=== PATIENT | male | born 1960 | race Caucasian/White ===

== ENCOUNTER 2016-12-10 13:33 | Emergency (ER) | payer OTHER ==
[~2016-12-10] VITALS: Ht 182.9 cm; Wt 104.5 kg
[2016-12-10 13:40] VITALS: BP 151/91; PULSE 77; RESP 14; O2SAT 99
--- NOTE | 2016-12-10 13:44 | ED.REPORT ---
HPI-Extremity Problem Lower Date of Service Dec 10, 2016 ED Provider: History of Present Illness: started with heel pain, woke up with it. pain getting worse. 4 days ago noticed ankle swelling. redness on right leg started yesterday. 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 , No hx of RA, no increase in activity. lisinopril 10 mg, statin ? name, nexium 20 mg. primary care is morror in [place] after sitting for a time has increase in stiffness marshall in right hip, taking aleve 2 times a day Nursing Notes Chief Complaint: General Complaint Nursing Notes Reviewed: Yes Allergies: Coded Allergies: No Known Allergies (Unverified , 12/10/16) Scheduled Esomeprazole Magnesium (Nexium) 20 Mg Capsule.dr 20 MG PO DAILY Lisinopril (Lisinopril) 10 Mg Tablet 10 MG PO DAILY Miscellaneous Medications ([Statin unknown]) General Time Seen by MD: 13:44 Chief Complaint Other (ankle and leg swelling and feet pain and rash) Hx Obtained From: Patient Onset Occurred: More than a week ago... (2 weeks) Symptom Duration: Since onset Past Medical History Past Medical History Denies: Asthma, Diabetes mellitus Past Surgical History denies Smoking History Former Smoker (quit 35 years ago) Social History Alcohol Use: Denies alcohol use Drug Use: Denies drug use Other Social History: Occupation lives with , works at [employer] 12/08/2016 Ambulatory Status Independent Review of Systems Basic Review of Systems Eyes: Vision NL, No discharge : No dysuria, No frequency Psychiatric: Normal thought content Physical Exam Physical Exam Notes: patient reports he has a positive skin reading all the time, also reports daughter is positive strep Initial Vital Signs Vital Signs (First) Date Time Temp Pulse Resp B/P Pulse Ox O2 Delivery O2 Flow Rate FiO2 12/10/16 13:40 36.7 77 14 151/91 99 Room Air Initial VS: Reviewed, Vital signs normal General/Constitutional: Well-developed, Well-nourished Head / Eyes: Atraumatic, Normocephalic, PERRL ENT: Mucous membranes moist, Conjunctiva normal, No scleral icterus Neck: Supple, Non-tender, Full range of motion Respiratory: Breath sounds normal, Clear to auscultation, No respiratory distress Cardiovascular: Regular rate & rhythm, Heart sounds normal, Intact distal pulses Abdomen / GI: Soft, Non-tender, No guarding, No rebound, No distention Back: No CVA tenderness Lymphatic: No lymphadenopathy Upper Extremities: Vascular intact, Neuro intact, No swelling, No tenderness Skin: Warm, Dry, No cyanosis Neurologic: Alert, Oriented, Nonfocal Psychiatric: Mood/affect normal, Behavior normal, Normal thought content bilateral ankle swelling with scattered areas of erthyma on both lower legs. On right leg one is on his thigh. General/Constitutional: Awake, Alert, No acute distress Respiratory / Chest: Atraumatic, Breath sounds NL, Breath sounds = bilat, No respiratory distress Interpretation & Diagnostics Interpretation & Diagnostics: al-time imaging, as well as color and pulse Doppler interrogation, were performed of the deep veins of both legs from the inguinal ligament to the popliteal fossa. COMPARISON: None. FINDINGS: The deep veins are normally compressible, and free of intraluminal thrombus. Color and pulse Doppler demonstrate normal phasic intravascular flow. There is normal augmentation response to distal compression maneuver. IMPRESSION: No evidence for lower extremity deep venous thrombosis. Lab Results Interpretation Result Diagram: 12/10/16 1400 12/10/16 1400 Test 12/10/16 14:00 12/10/16 14:35 White Blood Count 8.9th/mm3 (3.8-10.1) Red Blood Count 4.71mil/mm3 (4.40-5.80) Hemoglobin 14.3g/dL (13.8-17.2) Hematocrit 43.6% (41.0-50.0) Mean Corpuscular Volume 92.6fL (81-100) Mean Corpuscular Hemoglobin 30.4pg (27.0-35.0) Mean Corpuscular Hemoglobin Concent 32.8% (32.0-37.0) Red Cell Distribution Width 12.8% (12.3-15.4) Platelet Count 197bil/L (150-400) Neutrophils (%) (Auto) 67.1% (40-74) Lymphocytes (%) (Auto) 21.9% (14-46) Monocytes (%) (Auto) 9.4% (4-12) Eosinophils (%) (Auto) 1.3% (0-5) Basophils (%) (Auto) 0.2% (0-3) Erythrocyte Sedimentation Rate 46mm/hr (0-30) Sodium Level 137mEq/L (134-144) Potassium Level 3.9mEq/L (3.5-5.2) Chloride Level 101mEq/L (97-108) Carbon Dioxide Level 22mmol/L (18-29) Blood Urea Nitrogen 22mg/dL (6-24) Creatinine 1.23mg/dL (0.76-1.27) Estimat Glomerular Filtration Rate 65mL/min (>59) Glucose Level 109mg/dL (60-99) Lactic Acid Level 1.0mmol/L (0.4-2.0) Calcium Level 8.9mg/dL (8.5-10.1) Total Bilirubin 0.5mg/dL (0.0-1.2) Aspartate Amino Transf (AST/SGOT) 17U/L (0-50) Alanine Aminotransferase (ALT/SGPT) 17U/L (0-44) Alkaline Phosphatase 98U/L (25-150) C-Reactive Protein 8.5mg/dL (0.0-0.5) Pro-B-Type Natriuretic Peptide 55.36pg/mL (0-210) Total Protein 7.0g/dL (6.4-8.4) Albumin 3.8g/dL (3.4-5.0) X-Ray Interpretation Xray Interpretation: PROCEDURE: X-RAY CHEST, TWO VIEWS ([id number]) INDICATIONS: 56-year-old male with bilateral ankle swelling for several weeks. TECHNIQUE: 2 views of the chest were acquired. COMPARISON: None. FINDINGS: Surgical changes and devices: None. Lungs and pleura: No pleural effusions or pneumothorax. Lungs are clear. Mediastinum: Mediastinal contours are normal. Heart size is normal. Bones and chest wall: No suspicious bony abnormalities. Soft tissues appear unremarkable. IMPRESSION: No acute cardiopulmonary disease. Re-Eval/Medical Decision Med Decision/Clinical Course 56 year old male presents for evualation of lower leg swelling and pain. Rash is classic for erthyma nodusom. ASO, and RA are still pending. Discussed with Dr. Suarez. Patient given copy of lab results and encouraged to follwo with primary care this week. Discharge & Departure Impression: Primary Impression: Erythema nodosum Disposition: Home Additional Instructions: The rash is classic for erythema nodosum. Your chest x-ray is negative. The ASO titer is pending but you are being treated for strep. You are also receiving a taper of prednisone. You labs are normal with the exception of glucose elevated at 109 and ESR and CRP is elevated. The ultrasound is negative for any clot. A note to work cloud engagement partner is provided. Please follow with primary care this week. As your skin test is positive ( in the past) one is not being placed today. EDSupervising Provider for APC: Rosalio Suarez MD, Sue ARNP Dec 10, 2016 13:44
[2016-12-10] MEDS ORDERED: [UNRECOGNIZED DRUG - REMARK] (13:49)
[2016-12-10] MEDS ORDERED: ESOM20CA28 PO (13:49)
[2016-12-10] MEDS ORDERED: LISI10TA PO (13:49)
[2016-12-10 14:19] LABS: BASOPHILS % (AUTO) 0.2 % (0-3); EOSINOPHILS % (AUTO) 1.3 % (0-5); MONOCYTES % (AUTO) 9.4 % (4-12); Mean Corpuscular Hemoglobin 30.4 pg (27.0-35.0); Mean Corpuscular Volume 92.6 fL (81-100); NEUTROPHILS % (AUTO) 67.1 % (40-74); Platelet Count 197 bil/L (150-400)
--- NOTE | 2016-12-10 14:33 | DRSVH ---
PROCEDURE: X-RAY CHEST, TWO VIEWS ([id number]) INDICATIONS: 56-year-old male with bilateral ankle swelling for several weeks. TECHNIQUE: 2 views of the chest were acquired. COMPARISON: None. FINDINGS: Surgical changes and devices: None. Lungs and pleura: No pleural effusions or pneumothorax. Lungs are clear. Mediastinum: Mediastinal contours are normal. Heart size is normal. Bones and chest wall: No suspicious bony abnormalities. Soft tissues appear unremarkable. IMPRESSION: No acute cardiopulmonary disease. Dictated by: Jacob Saez M.D. on 12/10/2016 at 14:31 Approved by: Jacob Saez M.D. on 12/10/2016 at 14:31
[2016-12-10 14:44] LABS: ERYTHROCYTE SEDIMENTATION RATE 46 mm/hr (0-30)
[2016-12-10 14:55] VITALS: BP 130/77; PULSE 75; RESP 14; O2SAT 100
--- NOTE | 2016-12-10 15:07 | DRSVH ---
PROCEDURE: US VENOUS LEG DUPLEX BILATERAL INDICATIONS: 56-year-old male with left ankle swelling. TECHNIQUE: Real-time imaging, as well as color and pulse Doppler interrogation, were performed of the deep veins of both legs from the inguinal ligament to the popliteal fossa. COMPARISON: None. FINDINGS: The deep veins are normally compressible, and free of intraluminal thrombus. Color and pu lse Doppler demonstrate normal phasic intravascular flow. There is normal augmentation response to d istal compression maneuver. IMPRESSION: No evidence for lower extremity deep venous thrombosis. Dictated by: Jacob Saez M.D. on 12/10/2016 at 15:03 Approved by: Jacob Saez M.D. on 12/10/2016 at 15:05
[2016-12-10] MEDS ORDERED: predniSONE 20 mg Tablet PO ONE (16:35)
[2016-12-10 16:56] VITALS: BP 130/77; PULSE 75; RESP 14; O2SAT 100
[2017-01-24] MEDS ORDERED: [UNRECOGNIZED DRUG - CODE] IM (16:16)
== END 2016-12-10 16:57 | disposition home or self-care (01) ==
LOC: SED 13:33
DX: L52 Erythema nodosum (principal); Z87.891 Personal history of nicotine dependence

== ENCOUNTER 2016-12-21 19:00 | Emergency (ER) | payer OTHER ==
[~2016-12-21] VITALS: Ht 182.9 cm; Wt 104.5 kg
[~2016-12-21 19:00] MED LIST: ESOM20CA28 PO; LISI10TA PO; [UNRECOGNIZED DRUG - REMARK]
[2016-12-21 19:10] VITALS: BP 150/91; PULSE 126; RESP 15; O2SAT 100
--- NOTE | 2016-12-21 21:45 | ED.REPORT ---
HPI-General Illness Date of Service Dec 21, 2016 ED Provider: Zhao Jay MD A 56 year old male with a history of hypertension presents to the ED complaining of bilateral ankle and foot pain. This is accompanied by swelling and redness. The pt was seen in the ED eleven days ago for similar symptoms and was diagnosed with strep. He was prescribed a ten day course of Prednisone, but began experiencing swelling and pain again before the antibiotics were completed. This was accompanied by worsening back spasms, nausea, and a small area of redness, swelling, and pain near his right knee. He is no longer able to walk due to the pain. The pt denies recent exposure to lyme disease or any known family history of gout. He also denies personal history of ulcerative colitis, pancreatitis, Crohn's disease, or alcoholism. Nursing Notes Stated Complaint: STREP IN FEET,FEVER Chief Complaint: Skin Rash/Abscess Nursing Notes Reviewed: Yes Allergies: Coded Allergies: No Known Allergies (Unverified , 12/21/16) Scheduled Esomeprazole Magnesium (Nexium) 20 Mg Capsule.dr 20 MG PO DAILY Lisinopril (Lisinopril) 10 Mg Tablet 10 MG PO DAILY Miscellaneous Medications ([Statin unknown]) General Time Seen by MD: 21:44 Chief Complaint Other (Bilateral foot pain) Hx Obtained From: Patient Arrived By: Walk-in Sudden in Onset?: No Onset Occurred: More than a week ago... Symptom Duration: Since onset Recent Healthcare: No recent hospitalization, Recent doctor visit Similar Sx Previous: No Past Medical History Past Medical History hypertension Past Surgical History none reported Smoking History Former Smoker (quit 1981) Social History Alcohol Use: Denies alcohol use Drug Use: Denies drug use Other Social History: Good social support, Occupation lives with , works at [employer] 12/08/2016 Ambulatory Status Independent Review of Systems redness of feet Full Review of Systems Constitutional: Denies: Fever Respiratory: Denies: Non-productive cough, Shortness of breath Cardiovascular: Denies: Chest pain GI: Reports: Nausea, Denies: Abdominal pain, Diarrhea, Vomiting Musculoskeletal: Reports: Back pain (spasms), Extremity pain, Extremity swelling Skin: Reports Rash Complete sys rev & neg: except as marked. Physical Exam Vital Signs Vital Signs Date Time Temp Pulse Resp B/P Pulse Ox O2 Delivery O2 Flow Rate FiO2 12/22/16 02:36 36.5 90 16 112/77 97 Room Air 12/21/16 19:10 36.6 126 15 150/91 100 Room Air Initial VS: Reviewed General/Constitutional: Awake, Alert Head / Eyes: Atraumatic, Normocephalic, PERRL, EOMI, Conjunctiva NL ENT: Atraumatic, Airway patent, Mucous membranes moist Neck: Atraumatic, Supple, Full range of motion Respiratory / Chest: Atraumatic, Breath sounds NL, Breath sounds = bilat, No respiratory distress Cardiovascular: Heart rate NL, Regular rhythm, Heart sounds NL Abdomen: Atraumatic, Soft, Non-tender Back: Atraumatic, Full range of motion Upper Extremities Upper Extremity / MS: Atraumatic, Full range of motion Lower Extremity / Pelvis / MS: Atraumatic, Full range of motion patch on right thigh medial and proximal to knee Ankle / Foot: No deformity violaceous patches, tender and swollen on anterior and medial ankles bilateral ankle edema, appears related to patches Skin: Atraumatic, Color NL, No rash, Warm, Dry skin normal other than noted above Neurologic: Oriented X3, Speech NL, No motor deficits, No sensory deficits Psychiatric: Affect NL, Mood NL Interpretation & Diagnostics Lab Results Interpretation Result Diagram: 12/21/16 2240 12/21/16 2240 Test 12/21/16 21:50 12/21/16 22:40 Urine Color Yellow (YELLOW) Urine Appearance Hazy (CLEAR,HAZY) Urine pH 6.0 (5.0-8.0) Urine Specific [place] 1.030 (1.003-1.035) Urine Protein Negativemg/dL (NEG,TRACE) Urine Glucose (UA) Negativemg/dL (NEGATIVE) Urine Ketones Negativemg/dL (NEGATIVE) Urine Occult Blood Negative (NEGATIVE) Urine Nitrite Negative (NEGATIVE) Urine Bilirubin Negative (NEGATIVE) Urine Urobilinogen Normalmg/dL (NORMAL) Urine Leukocyte Esterase Negative (NEGATIVE) Urine RBC 0-2/hpf (0-2) Urine WBC 0-5/hpf (0-5) Urine Epithelial Cells Occasional/hpf (NONE-MOD) Urine Crystals None seen (NONE SEEN) Urine Bacteria Few/hpf (NONE-FEW) Urine Hyaline Casts None/lpf (NONE) Urine Granular Casts None seen (NONE SEEN) Urine Waxy Casts None seen (NONE SEEN) Urine Red Blood Cell Casts None seen (NONE SEEN) Urine White Blood Cell Casts None seen (NONE SEEN) Urine Mucus Present (None Seen) Urine Trichomonas None seen (NONE SEEN) Urine Yeast None (NONE SEEN) Urinalysis Comment None Urine Culture Reflexed Not indicated White Blood Count 15.8th/mm3 (3.8-10.1) Red Blood Count 5.26mil/mm3 (4.40-5.80) Hemoglobin 16.3g/dL (13.8-17.2) Hematocrit 48.4% (41.0-50.0) Mean Corpuscular Volume 92.0fL (81-100) Mean Corpuscular Hemoglobin 31.0pg (27.0-35.0) Mean Corpuscular Hemoglobin Concent 33.7% (32.0-37.0) Red Cell Distribution Width 13.3% (12.3-15.4) Platelet Count 252bil/L (150-400) Neutrophils (%) (Auto) 76.0% (40-74) Lymphocytes (%) (Auto) 14.3% (14-46) Monocytes (%) (Auto) 8.5% (4-12) Eosinophils (%) (Auto) 0.6% (0-5) Basophils (%) (Auto) 0.3% (0-3) Band Neutrophils % 0% (1-5) Erythrocyte Sedimentation Rate 3mm/hr (0-30) Sodium Level 138mEq/L (134-144) Potassium Level 4.5mEq/L (3.5-5.2) Chloride Level 99mEq/L (97-108) Carbon Dioxide Level 26mmol/L (18-29) Blood Urea Nitrogen 28mg/dL (6-24) Creatinine 1.44mg/dL (0.76-1.27) Estimat Glomerular Filtration Rate 54mL/min (>59) Glucose Level 116mg/dL (60-99) Uric Acid 5.4mg/dL (2.6-7.2) Calcium Level 9.3mg/dL (8.5-10.1) Magnesium Level 2.0mg/dL (1.6-2.6) Total Bilirubin 0.6mg/dL (0.0-1.2) Aspartate Amino Transf (AST/SGOT) 15U/L (0-50) Alanine Aminotransferase (ALT/SGPT) 18U/L (0-44) Alkaline Phosphatase 108U/L (25-150) C-Reactive Protein 4.1mg/dL (0.0-0.5) Total Protein 7.7g/dL (6.4-8.4) Albumin 4.1g/dL (3.4-5.0) Lipase 50U/L (13-60) Hold Navarro Top Tube Received (Received) Procedures Procedure Notes: Skin Biopsy 01:35 ED physician informed consent provided by patient time-out performed, hand hygiene observed, stand sterile technique, sterile drapes applied location: right ankle local anesthesia: 1% lidocaine skin preparation agent: chlorhexidine 4 mm circular punch biopsy tool used to make 4 mm circular punch elevated with forceps and trimmed including subcutaneous fat promptly placed in formalin hemostasis good, approximation good closed with 2 4-O sutures dressing applied, no complications, condition improved, tolerated procedure well, patient stable Re-Eval/Medical Decision Med Decision/Clinical Course 56-year-old with arthropathy associated with a hazy red skin rash on his lower extremities. The lesions on his legs are clearly arthritic and not merely erythema nodosum. Actually has no bui involvement at all, and it is all centered on the ankles. There is effusion of the ankle joints. No other large joints appear to be affected. He is inflammatory indices are somewhat improved from the determination several days ago, but still abnormal. A skin biopsy was obtained tonight and submitted to pathology. He is directed to secure follow up with rheumatology. Call PCP to make that referral. Provided with Dr. Rene's contact information. I suspect this is inflammatory arthropathy related to an acute infection, whether viral or streptococcal is not clear. No other associated issues, with no history of inflammatory bowel disease, no symptoms to suggest that, no history of pancreatitis, no history of hepatitis, no likelihood of Lyme exposure, and worsening symptoms despite a completion of a course of Keflex. Doubt acute streptococcal disease. His renal function is mildly impaired, but there is no proteinuria and no formed elements to suggest acute glomerular injury. He is advised to use judicious doses of Aleve for anti-inflammatory and pain relief. Crutches provided to assist with ambulation. Follow-up with PCP this week. Skin biopsy results should be available in about a week. Source of Hx: Old records Time of Eval: 00:50 Patient Status: Condition improved Re-Evaluation/Progress Note: Pt rechecked, who is resting comfortably. Need for skin biopsy is discussed. The pt agrees with the plan. Time of Eval: 01:35 Patient Status: Condition improved Re-Evaluation/Progress Note: Pt rechecked and biopsy is performed. Pt tolerated well and there were no complications. The plan for discharge is discussed. The pt understands and agrees with the plan. All questions are addressed at this time. Counseled Regarding: Diagnosis, Need for follow-up, When/why to return to ED Discharge & Departure Primary Impression: Inflammatory arthropathy Disposition: Home Discharge Condition All VS Reviewed: Yes Condition: Stable Patient Instructions: Rheumatoid Arthritis (ED) Additional Instructions: This appears to be an inflammatory arthritis. It may be postinfectious, which is actually most likely. Further evaluation is required. A skin biopsy was done as you know, and will be ready in about a week. Your doctor will have access to those results as soon as they are available. I suggest you follow-up with rheumatology. He will need a referral from your doctor for rheumatology. Contact Dr. Rene directly, but also contact your doctor. Continue your Aleve single tablet twice daily for pain. You may supplement with extra strength Tylenol if needed. Follow up with your doctor early this week. Use crutches for walking if her joints are hurting too much to walk unassisted. Return if any immediate issues. Bacitracin to your biopsy wound three times daily and really cover with a Band- Aid. Return on day ten for suture removal here. They will deal with that in triage, usually without much waiting. Referrals: MATT CALLAHAN MD (PCP) Richie Rene MD Attestation Portions of this note were transcribed by Sepideh Cobb. I, Dr. Jay personally performed the history, physical exam and medical decision-making; I reviewed and confirmed the accuracy of the information in the transcribed note. Signed by: Rob Velez, 12/22/2016 and 0243. copies to: MATT CALLAHAN MD; Richie Rene MD, Christopher W MD Dec 21, 2016 21:44 SEPIDEH COBB Dec 21, 2016 21:55
[2016-12-21 22:59] LABS: Platelet Count 252 bil/L (150-400)
[2016-12-21 23:00] LABS: BASOPHILS % (AUTO) 0.3 % (0-3); EOSINOPHILS % (AUTO) 0.6 % (0-5); MONOCYTES % (AUTO) 8.5 % (4-12)
[2016-12-21 23:20] LABS: ERYTHROCYTE SEDIMENTATION RATE 3 mm/hr (0-30)
[2016-12-22 00:30] LABS: APPEARANCE,URINE HAZY (CLEAR,HAZY); COLOR,URINE YELLOW (YELLOW); OCCULT BLOOD,URINE NEGATIVE (NEGATIVE); UROBILINOGEN,URINE NORMAL (NORMAL)
[2016-12-22 02:36] VITALS: BP 112/77; PULSE 90; RESP 16; O2SAT 97
--- NOTE | 2017-01-02 10:54 | PATH ---
SURGICAL PATHOLOGY Attending Physician:Zhao Jay CASE STATUS: Signed Out PATIENT NAME: RAFA CHAN PID: [id number] : 1960 DATE COLLECTED:12/22/2016 00:00 SPECIMEN: Skin, biopsy CLINICAL HISTORY: INFLAMMATORY ARTHROPHATHY SKIN LESION 1). RIGHT ANKLE SKIN BIOPSY, 4MM PUNCH FINAL DIAGNOSIS: Skin, Right Ankle, Punch Biopsy: Sparse superficial perivascular dermatitis, see comment. ICD10: L30.9 NOTE: The findings may represent nummular dermatitis; however, the findings are subtle and nonspecific. Clinical correlation is essential. In addition, if the clinical lesional areas are much broader than the biopsy, clinical correlation is also recommended to rule out a sampling bias. GROSS DESCRIPTION: The specimen is received in one formalin filled container labeled with the patient's name, sublabeled "RT ankle" and consists of a 0.4 x 0.4 x 0.4 CM -culp punch biopsy of skin. The surgical margin is inked blue. The specimen is bisected and entirely submitted in one cassette. 12/22/2016 DAC MICRO DESCRIPTION: There is subtle spongiosis. There is a sparse superficial perivascular lymphocytic infiltrate. Eosinophils are inconspicuous. ICD-9 CODES: CPT CODES: 1: 03796 Electronically Signed Out Roxi Temple M.D.,[facility] [address], [place] [address] Technical component performed at [facility], [facility] [address], [place], [address]
[2017-01-24] MEDS ORDERED: [UNRECOGNIZED DRUG - CODE] IM (16:16)
== END 2016-12-22 02:40 | disposition home or self-care (01) ==
LOC: SED 19:00
DX: M06.4 Inflammatory polyarthropathy (principal); I10 Essential (primary) hypertension; Z87.891 Personal history of nicotine dependence
CPT/HCPCS: 11100; 36415; 80053; 81000; 82784; 83690; 83735; 84155; 84156; 84165; 84550; 85025; 85651; 86038; 86060; 86140; 86334; 86430; 86618; 87040; 96374; 99284; J1885

== ENCOUNTER 2016-12-26 17:01 | Inpatient (IN) | payer OTHER ==
[~2016-12-26] VITALS: Ht 182.9 cm; Wt 104.1 kg
[2016-12-26 17:05] VITALS: BP 135/83; PULSE 93; RESP 14; O2SAT 99
[2016-12-26 18:13] LABS: BASOPHILS % (AUTO) 0.1 % (0-3); EOSINOPHILS % (AUTO) 0.8 % (0-5); Mean Corpuscular Hemoglobin 29.6 pg (27.0-35.0); Mean Corpuscular Volume 92.9 fL (81-100); NEUTROPHILS % (AUTO) 76.9 % (40-74); Platelet Count 217 bil/L (150-400)
--- NOTE | 2016-12-26 18:27 | DRSVH ---
PROCEDURE: X-RAY CHEST ONE VIEW, PORTABLE ([id number]) INDICATIONS: low grade fever TECHNIQUE: One view of the chest was acquired. COMPARISON: [facility], CR, XR CHEST 2VW, 12/10/2016, 14:13. FINDINGS: Surgical changes and devices: None. Lungs and pleura: No pleural effusions or pneumothorax. No acute consolidation. There is a small n odular opacity in the right lower lung zone measuring approximately 6 mm. Mediastinum: Mediastinal contours appear normal. Heart size is normal. Bones and chest wall: No suspicious bony lesions. Overlying soft tissues appear unremarkable. IMPRESSION: 1. No focal consolidation to suggest pneumonia. 2. Small nodular opacity in the right lung base may represent confluent vascular and bony structures . Consider short term followup repeat study in 4-6 weeks to demonstrate resolution. Dictated by: Charli Quan M.D. on 12/26/2016 at 18:20 Approved by: Charli Quan M.D. on 12/26/2016 at 18:21
[2016-12-26 18:59] LABS: APPEARANCE,URINE CLEAR (CLEAR,HAZY); COLOR,URINE YELLOW (YELLOW); OCCULT BLOOD,URINE NEGATIVE (NEGATIVE); UROBILINOGEN,URINE NORMAL (NORMAL)
--- NOTE | 2016-12-26 19:00 | ED.REPORT ---
HPI-Rash / Abscess Date of Service Dec 26, 2016 ED Provider: Jace Fuentes PA-C Enoc is otherwise healthy 56-year-old male who presents with chief complaint of bilateral ankle swelling. He was asked to present to the emergency department by Dr. Salcedo to be admitted to the hospitalist service. His first began December 10 he has undergone several rounds of outpatient antibiotics and is redness, swelling and he continues to advance. Now has areas of induration developing on the medial aspect of his left lower leg, and distal anterior thigh on the right leg. Dr. Salcedo is requesting he be admitted for bilateral MRIs of his ankles and is concerned about the possibility of septic joints. Patient states that he has experienced fevers in the evening measured as high as 101.6 but feels otherwise well. Nursing Notes Stated Complaint: INFECTION ON BOTH LEGS Chief Complaint: General Complaint Nursing Notes Reviewed: Yes Allergies: Coded Allergies: No Known Allergies (Unverified , 12/26/16) Scheduled Atorvastatin (Lipitor) 40 Mg Tablet 40 MG PO HS Esomeprazole Magnesium (Nexium) 40 Mg Capsule.dr 40 MG PO HS Lisinopril (Lisinopril) 20 Mg Tablet 20 MG PO HS Naproxen (Naproxen) 250 Mg Tablet 250 MG PO BIDWM Scheduled PRN Sildenafil Citrate (Viagra) 100 Mg Tablet 100 MG PO UD PRN PRN for sexual activity General Time Seen by MD: 18:58 Chief Complaint Red area Past Medical History Past Medical History hypertension Past Surgical History none reported Smoking History Former Smoker Social History Alcohol Use: Denies alcohol use Drug Use: Denies drug use Other Social History: Good social support, Occupation lives with , works at [employer] 12/08/2016 Ambulatory Status Independent Review of Systems General: Admits fever, chills, denies malaise. HEENT: Denies congestion, headache, sore throat. Respiratory: Denies dyspnea, cough, shortness of breath, wheezing. Cardiovascular: Denies chest pain, palpitations. Gastrointestinal: Denies vomiting, diarrhea, abdominal pain. Genitourinary: Denies frequency, urgency, dysuria, hematuria. Otherwise as noted in HPI. Physical Exam General: Well appearing, well developed, well nourished, no acute distress. Head: Atraumatic, normocephalic. Eyes: No scleral icterus or injection. No discharge. Vision grossly intact. ENT: Voice clear, hearing grossly intact. Respiratory: Regular rate and rhythm. Breath sounds present, clear to auscultation and equal bilaterally. No respiratory distress. No increased work of breathing, speaks in complete sentences. Cardiovascular: Regular rate and rhythm, without murmur, gallop or rub. No pedal edema. Gastrointestinal: Abdomen flat and non-tender without guarding or rebound. Bowel sounds normoactive. Skin: Warm and dry. Neurological: Grossly nonfocal. Right foot/ankle: Notable redness, swelling, heat around right ankle with slight scale. Negative pitting edema. Single suture present from biopsy. Right leg: Small area of redness forming on lateral calf. Right knee: Nontender full range of motion Right thigh: 4 cm area of redness and induration on the anterior distal thigh Left foot/ankle number redness, swelling, heat around left ankle with slight scale. Negative pitting edema Left leg: Mild area of redness forming on the posterior calf. Left knee: Nontender, full range of motion. Psychological: Alert and oriented. Speech appropriate, linear and logical. Behavior appropriate. Initial Vital Signs Vital Signs (First) Date Time Temp Pulse Resp B/P Pulse Ox O2 Delivery O2 Flow Rate FiO2 12/26/16 17:05 37.4 93 14 135/83 99 Room Air Initial VS: Reviewed, Vital signs normal Interpretation & Diagnostics Lab Results Interpretation Result Diagram: 12/26/16 1800 12/26/16 1800 Test 12/26/16 18:00 12/26/16 18:30 White Blood Count 9.8th/mm3 (3.8-10.1) Red Blood Count 4.53mil/mm3 (4.40-5.80) Hemoglobin 13.4g/dL (13.8-17.2) Hematocrit 42.1% (41.0-50.0) Mean Corpuscular Volume 92.9fL (81-100) Mean Corpuscular Hemoglobin 29.6pg (27.0-35.0) Mean Corpuscular Hemoglobin Concent 31.8% (32.0-37.0) Red Cell Distribution Width 13.1% (12.3-15.4) Platelet Count 217bil/L (150-400) Neutrophils (%) (Auto) 76.9% (40-74) Lymphocytes (%) (Auto) 13.9% (14-46) Monocytes (%) (Auto) 8.0% (4-12) Eosinophils (%) (Auto) 0.8% (0-5) Basophils (%) (Auto) 0.1% (0-3) Sodium Level 138mEq/L (134-144) Potassium Level 4.9mEq/L (3.5-5.2) Chloride Level 101mEq/L (97-108) Carbon Dioxide Level 24mmol/L (18-29) Blood Urea Nitrogen 24mg/dL (6-24) Creatinine 1.23mg/dL (0.76-1.27) Estimat Glomerular Filtration Rate 65mL/min (>59) Glucose Level 109mg/dL (60-99) Lactic Acid Level 1.0mmol/L (0.4-2.0) Calcium Level 9.4mg/dL (8.5-10.1) Total Bilirubin 0.5mg/dL (0.0-1.2) Aspartate Amino Transf (AST/SGOT) 21U/L (0-50) Alanine Aminotransferase (ALT/SGPT) 19U/L (0-44) Alkaline Phosphatase 88U/L (25-150) Total Protein 7.7g/dL (6.4-8.4) Albumin 4.1g/dL (3.4-5.0) Urine Color Yellow (YELLOW) Urine Appearance Clear (CLEAR,HAZY) Urine pH 6.0 (5.0-8.0) Urine Specific [place] >1.030 (1.003-1.035) Urine Protein Negativemg/dL (NEG,TRACE) Urine Glucose (UA) Negativemg/dL (NEGATIVE) Urine Ketones Negativemg/dL (NEGATIVE) Urine Occult Blood Negative (NEGATIVE) Urine Nitrite Negative (NEGATIVE) Urine Bilirubin Negative (NEGATIVE) Urine Urobilinogen Normalmg/dL (NORMAL) Urine Leukocyte Esterase Negative (NEGATIVE) Urine RBC 0-2/hpf (0-2) Urine WBC 0-5/hpf (0-5) Urine Epithelial Cells Few/hpf (NONE-MOD) Urine Crystals None seen (NONE SEEN) Urine Bacteria Few/hpf (NONE-FEW) Urine Hyaline Casts None/lpf (NONE) Urine Granular Casts None seen (NONE SEEN) Urine Waxy Casts None seen (NONE SEEN) Urine Red Blood Cell Casts None seen (NONE SEEN) Urine White Blood Cell Casts None seen (NONE SEEN) Urine Mucus Present (None Seen) Urine Trichomonas None seen (NONE SEEN) Urine Yeast None (NONE SEEN) Urinalysis Comment None Urine Culture Reflexed Not indicated X-Ray Chest Interpretation Chest Xray Interpretation: PROCEDURE: X-RAY CHEST ONE VIEW, PORTABLE ([id number]) INDICATIONS: low grade fever IMPRESSION: 1. No focal consolidation to suggest pneumonia. 2. Small nodular opacity in the right lung base may represent confluent vascular and bony structures. Consider short term followup repeat study in 4-6 weeks to demonstrate resolution. Re-Eval/Medical Decision Med Decision/Clinical Course Patient referred to the emergency department by Dr. Salcedo who is concerned about bilateral ankle infections that have not responded to outpatient therapy. She asks that I arrange admission to hospitalist service with consultation by Dr. Sánchez. On presentation the patient appears fairly well but has notable redness, swelling in both ankles as well as newly emerging areas of erythema on other parts of his legs. He denies symptoms of systemic infection. His vital signs are normal. His physical exam is otherwise benign. I discussed this with the hospitalist on-call who accepts admission. Discharge & Departure Impression: Primary Impression: Inflammatory arthropathy Disposition: ADMITTED TO HOSPITAL Discharge Condition All VS Reviewed: Yes Condition: Stable Referrals: MATT CALLAHAN MD (PCP) EDSupervising Provider for APC: Mateus Davis DO copies to: MATT CALLAHAN MD, Seth PA-C Dec 26, 2016 19:00
--- NOTE | 2016-12-26 19:38 | CONS ---
[address] [address] CONSULTATION REPORT PATIENT: RAFA CHAN : 1960 MR#: [id number] ADMIT: 12/26/2016 JOB ID: [id number] DATE OF SERVICE:ORTHOPEDIC CONSULTATION CPT code 41978 12/26/2016 CHIEF COMPLAINT: This is a 56-year-old male who began to have pain, swelling and erythema in both ankles on or about December 06, 2016. He was treated with some IV antibiotics as well as some steroids, and the patient states he improved. He denies being bit by any insects. He does, however, live in an area that [place] and he recently did acquire a new dog in the middle of November. The patient went back to the emergency department on two separate occasions. On one occasion, they actually did some tissue biopsy over the medial aspect of the ankle and sent that for culture. He was seen by his medical physician in [place] with the patient complaining of pain and swelling in both ankles with the erythema. The internal medicine physician was concerned about a possible inflammatory arthropathy versus septic ankle. The patient was then seen in the orthopedic clinic today. He was able to move his ankles and did not appear to have septic ankle joints but appeared to have erythema in the ankles with soft tissue local swelling and some skin rash. At that point, I did consult Infectious Disease. I spoke with Dr. Sánchez and he agreed that the patient needed to be admitted to the medical service and that he would consult from an infectious disease standpoint. PAST MEDICAL HISTORY: Positive for hypertension. SOCIAL HISTORY: Patient is a former smoker. He denies alcohol use. Occupation: Works at [employer] CURRENT MEDICATIONS: Include Nexium and lisinopril. ALLERGIES: None. PHYSICAL EXAMINATION: Temperature 37.4, pulse 93, respirations 14, blood pressure 135/83, pulse ox of 99. The patient has swelling in both ankles. I am able to passively maneuver the ankles and he is able to actively maneuver the ankles. The swelling and erythema he has is more in the soft tissue, particularly over the medial aspect of the right ankle, some over the lateral aspect of the right ankle and some over the medial and lateral aspect of the left ankle. He has had that prior soft tissue biopsy on the right ankle medial aspect. He also shows that he has an area of type of rash lesion over the distal part of the anterior right thigh and over the anterolateral aspect of the right leg. It is not a specific targeted type of rash, but there is the suspicion that he certainly could have a systemic illness such as Lyme disease. There is also the potential he could have gout with associated cellulitis. LABORATORY TESTING: Shows a white count 9800, hemoglobin 13, hematocrit 42, 76.9% PMNs. Sodium 138, potassium 4.9, chloride 101, CO2 24, BUN 24, creatinine 1.23. Lactic acid level 1, calcium 9.4, total bilirubin 0.5, SGOT 21, SGPT 19, alkaline phosphatase 88, total protein 7.7, and albumin 3.4. IMPRESSION: Bilateral ankle swelling and erythema. Cellulitis. Rule out systemic illness. There is no obvious septic joint on clinical exam today of his ankles or knees since he is actively able to move the ankles and I am passively able to maneuver them, but he appears to have soft tissue swelling. PLAN: I would suggest an MRI scan of both ankles to further delineate the soft tissue and bony pathology. If at any point he points to developing acutely inflamed joints that require joint aspiration, I would be more than happy to accommodate. Blood cultures were also taken. Infectious Disease was consulted. The hospitalist service may refer to some of his other hospital records where he was treated in the emergency department. If there are any questions, please do not hesitate to contact me. CC: [facility]- ORTHOPEDICS CC: Dax Salcedo M.D. LISA
[2016-12-26 20:03] VITALS: BP 130/69; PULSE 80; RESP 20; O2SAT 99
[2016-12-26] MEDS ORDERED: ESOM40CA41 PO (20:12)
[2016-12-26] MEDS ORDERED: NAPR250T PO (20:12)
[2016-12-26] MEDS ORDERED: SILD100T PO (20:12)
[2016-12-26] MEDS ORDERED: LISI-567 PO (20:12)
[2016-12-26] MEDS ORDERED: LIP40 PO (20:12)
[2016-12-26] MEDS ORDERED: levoFLOXacin Inj 750 MG in IV Premix 1 EACH IV ONE (20:30)
[2016-12-26] MEDS ORDERED: Polyethylene Glycol (PEG) 17 Gm Powder PO PRN (20:30)
[2016-12-26] MEDS ORDERED: 0.9% Sodium Chloride 1,000 ML IV SCH (20:30)
[2016-12-26] MEDS ORDERED: Ondansetron 2 mg/mL 2 mL Inj IVPUSH PRN (20:30)
[2016-12-26] MEDS ORDERED: Alum-Mag Hydrox-Simeth 30 mL Suspension PO PRN (20:30)
[2016-12-26] MEDS: 0.9% Sodium Chloride 1,000 ML IV SCH (21:06)
[2016-12-26 21:28] VITALS: BP 145/78; PULSE 91; RESP 20; O2SAT 100
--- NOTE | 2016-12-26 22:37 | PCM.PHAPRO ---
Progress Date of Service: Dec 26, 2016 Vancomycin Management Per Pharmacy: Indication: Bilateral Ankle Cellulitis Age: 56 yo Weight: 104 kg Labs: WBC: 9.8 SrCr: 1.23 mg/dL CRP: 4.1 - elevated Est CrCl ~ 70 mL/min Vitals: Pt reports fevers up to 101, all other vitals relatively stable, no fevers here Additional Abx: Unasyn 3 GM IV Q6h Nephrotoxic Risks: None, pt receiving IV hydration Recommendation: Load: Vancomycin 1500 mg IV x 1 given in ED Maintenance: 1250 mg IV Q12h Trough: Due on 12/28 @ 1999 Pharmacy to continue to monitor and adjust dose as needed. Thank You, Dahlia Fall, Pharm D. Dahlia Fall Dec 26, 2016 22:37
--- NOTE | 2016-12-26 22:50 | NUR ---
Admit Pt admitted from ER to [facility] Rm 1010 at 2114. Pt alert/oriented x4 and able to scoot from gurney to bed. Pt reporting severe pain with walking but currently no pain at rest. Levaquin and NS are infusing through PIV. Pt denies nausea. ON RA, VSS. Oriented to room and call light. Skin assessment revealed redness on ankles bilateral, R>L with small stitch on inner right ankle from biopsy site. Red blotches noted moving further up calf bilaterally. Pt on general diet and given Norris for tonight. Discussed plan of care with pt.
--- NOTE | 2016-12-26 23:04 | PCM.HPMED ---
Subjective Date of Service Dec 26, 2016 Primary Provider: Admitting Physician: Andry Lebron MD Primary Care Physician: Bobo Key MD Attending Physician: Andry Lebron MD Admit Status: From the Emergency Department, Full Admit, Non-Telemetry Chief Complaint: Bilateral ankle swelling and redness History of Present Illness: Enoc Maldonado is a 56-year-old male with Hypertension, GERD and Hyperlipidemia who presents with chief complaint of bilateral ankle swelling. Patient reported he first noticed the swelling about 3 weeks ago. He was evaluated in the Emergency room and had a course of antibiotics and steroids but initial improvement but then the swelling and redness recurred. He had a skin biopsy done by Dr Jay in the Emergency room days ago. The pain was so severe it limited his mobility, especially walking down the stairs with limited ankle joint motion. He also has some systemic symptoms of feeling warm and some chills. He has decreased appetite with some constipation Denies any recent travels, no new medications and no new socks or shoes. No family history of autoimmune disease. Case discussed with JUJU Fuentes. Dr Salcedo had seen and consulted on the patient. Vancomycin, Tramadol and Levaquin given in the ED. Review of Systems: Pertinent positives as noted in HPI. All other systems were reviewed and are negative Allergies Coded Allergies: No Known Allergies (Unverified , 12/26/16) Home Medications From Enoc Paul [id number] 1960 12/26/2016 03:00 PM Page: 10/10 atorvastatin 10 mg tablet take 1 tablet by oral route every day cephalexin 500 mg capsule take 1 capsule by oral route every 8 hours lisinopril 5 mg tablet take 1 tablet by oral route every day Nexium 40 mg capsule,delayed release take 1 capsule by oral route every day Vitamin B-12 ER 2,000 mcg tablet,extended release Vitamin D3 1,000 unit capsule take 1 by Oral route every day PMH Hypertension Dyslipidemia GERD . Surgical History None Family History Father had a [place] age 45 Social History Hx Alcohol Use: No Hx Substance Use: No Hx Tobacco Use: Yes Smoking Status: Former Smoker Living Arrangement: with Family Exam Vital Signs Vital Sign - Last Date Time Temp Pulse Resp B/P Pulse Ox O2 Delivery O2 Flow Rate FiO2 12/26/16 20:03 80 20 130/69 99 Room Air 12/26/16 17:05 37.4 Exam General: Alert, Oriented X3, Cooperative, No acute Distress Eyes: PERRLA, Scleral Anicteric Mouth: Mouth Normal, Mucous Membranes Moist/[place] Neck: Supple, no Thyromegaly, trachea central. Chest & Lungs: Clear to auscultation & percussion, No adventitious breath sounds, no crackles, no wheeze Cardiovascular: Normal S1, Normal S2, No Murmurs/Rubs/Gallops, Regular Rate/ Rhythm, (No JVD, no peripheral edema) Pulses: Radial (present and equal), Dorsalis Pedi (present and equal) Abdomen: Soft, Non-tender, Non-distended, Normoactive bowel tones. Musculoskeletal: Unremarkable. Normal range of motion, no swollen or erythematous joints Extremities: edema around both ankles, no cyanosis, no clubbing. Skin: Swelling and erythema he has is more in the soft tissue, particularly over the medial aspect of the right ankle, some over the lateral aspect of the right ankle and some over the medial and lateral aspect of the left ankle. He has had that prior soft tissue biopsy on the right ankle medial aspect. He also shows that he has an area of type of rash lesion over the distal part of the anterior right thigh and over the anterolateral aspect of the right leg. Neurological: Grossly neurologically intact, Normal Speech, Sensation Intact Lymphatic: Lymph nodes Cervical and Axillary not palpable. Lab and Diagnostics Labs Laboratory Tests Test 12/26/16 18:00 12/26/16 18:30 White Blood Count 9.8th/mm3 (3.8-10.1) Red Blood Count 4.53mil/mm3 (4.40-5.80) Hemoglobin 13.4g/dL (13.8-17.2) Hematocrit 42.1% (41.0-50.0) Mean Corpuscular Volume 92.9fL (81-100) Mean Corpuscular Hemoglobin 29.6pg (27.0-35.0) Mean Corpuscular Hemoglobin Concent 31.8% (32.0-37.0) Red Cell Distribution Width 13.1% (12.3-15.4) Platelet Count 217bil/L (150-400) Neutrophils (%) (Auto) 76.9% (40-74) Lymphocytes (%) (Auto) 13.9% (14-46) Monocytes (%) (Auto) 8.0% (4-12) Eosinophils (%) (Auto) 0.8% (0-5) Basophils (%) (Auto) 0.1% (0-3) Sodium Level 138mEq/L (134-144) Potassium Level 4.9mEq/L (3.5-5.2) Chloride Level 101mEq/L (97-108) Carbon Dioxide Level 24mmol/L (18-29) Blood Urea Nitrogen 24mg/dL (6-24) Creatinine 1.23mg/dL (0.76-1.27) Estimat Glomerular Filtration Rate 65mL/min (>59) Glucose Level 109mg/dL (60-99) Lactic Acid Level 1.0mmol/L (0.4-2.0) Calcium Level 9.4mg/dL (8.5-10.1) Total Bilirubin 0.5mg/dL (0.0-1.2) Aspartate Amino Transf (AST/SGOT) 21U/L (0-50) Alanine Aminotransferase (ALT/SGPT) 19U/L (0-44) Alkaline Phosphatase 88U/L (25-150) Total Protein 7.7g/dL (6.4-8.4) Albumin 4.1g/dL (3.4-5.0) Urine Color Yellow (YELLOW) Urine Appearance Clear (CLEAR,HAZY) Urine pH 6.0 (5.0-8.0) Urine Specific [place] >1.030 (1.003-1.035) Urine Protein Negativemg/dL (NEG,TRACE) Urine Glucose (UA) Negativemg/dL (NEGATIVE) Urine Ketones Negativemg/dL (NEGATIVE) Urine Occult Blood Negative (NEGATIVE) Urine Nitrite Negative (NEGATIVE) Urine Bilirubin Negative (NEGATIVE) Urine Urobilinogen Normalmg/dL (NORMAL) Urine Leukocyte Esterase Negative (NEGATIVE) Urine RBC 0-2/hpf (0-2) Urine WBC 0-5/hpf (0-5) Urine Epithelial Cells Few/hpf (NONE-MOD) Urine Crystals None seen (NONE SEEN) Urine Bacteria Few/hpf (NONE-FEW) Urine Hyaline Casts None/lpf (NONE) Urine Granular Casts None seen (NONE SEEN) Urine Waxy Casts None seen (NONE SEEN) Urine Red Blood Cell Casts None seen (NONE SEEN) Urine White Blood Cell Casts None seen (NONE SEEN) Urine Mucus Present (None Seen) Urine Trichomonas None seen (NONE SEEN) Urine Yeast None (NONE SEEN) Urinalysis Comment None Urine Culture Reflexed Not indicated Microbiology 12/26/16 Blood Culture, Received Pending Result Diagram: 12/26/16 1800 12/26/16 1800 X-Rays, CTs and MRIs X-RAY CHEST ONE VIEW, PORTABLE 12/26 IMPRESSION: 1. No focal consolidation to suggest pneumonia. 2. Small nodular opacity in the right lung base may represent confluent vascular and bony structures. Consider short term followup repeat study in 4-6 weeks to demonstrate resolution. Dictated by: Charli Quan M.D. on 12/26/2016 at 18:20 Approved by: Charli Quan M.D. on 12/26/2016 at 18:21 Assessment & Plan Enoc Maldonado is a 56-year-old male with Hypertension, GERD and Hyperlipidemia who presents with chief complaint of bilateral ankle swelling 1. Acute Bilateral ankle pain and swelling. Present on admission Patient was on a course of Cephalexin but without any improvement. Possible cellulitis versus inflammatory process, although it is less likely to have cellulitis of both legs. Differential diagnosis includes Rheumatoid arthritis. No traumas and no prior history of Gout - follow biopsy result of skin medial to right ankle (send from the clinic) - empiric antibiotics with Vancomycin and Unasyn IV - checking Rheumatoid factor and anti-CCP antibody - imaging ordered by Dr Salcedo (I will pass this onto Dr Salcedo as I am unclear of the type of MRI she requested) - Dr Sánchez aware and will be consulting 2. Hypertension, Chronic Currently stable. - continue Lisinopril 5 mg daily 3. Dyslipidemia, Chronic Presumed stable - continue Atorvastatin 10 mg daily - Acetaminophen as needed for mild pain/fever/headache - Bowel regimen as needed -Antiemetic as needed Patient admitted under inpatient status with expected length of stay > 2 midnights for severity of present symptoms, complexities of treatment plan and risk for adverse event . VTE Prophylaxis: Sub-Q Heparin (Unfractionated) Resuscitation Status: CPR: Attempt Resuscitation Andry Lebron MD Dec 26, 2016 20:41
[2016-12-27] MEDS: Heparin 5,000 Unit/mL Inj SUBQ SCH ×4 (00:45→23:13)
[2016-12-27 01:07] VITALS: BP 127/82; PULSE 95; RESP 20; O2SAT 99
[2016-12-27] MEDS: Ampicillin-Sulbactam Inj 3,000 MG in 0.9% Sodium Chloride 100 ML IV SCH ×2 (02:25→07:46)
[2016-12-27 05:47] VITALS: BP 116/76; PULSE 85; O2SAT 96
--- NOTE | 2016-12-27 06:10 | PCM.PNMED ---
Subjective Date of Service Dec 27, 2016 Subjective Patient says he has had low grade fevers, chills for a few weeks, was seen in ED originally, given amoxicillin and prednisone, improved symptoms. But it came back after prednisone 60->10 taper was done. [facility] to [facility] on the , who gave him some other abx, then keflex after getting lab results. He did not get better, he was seen again in the ER on the when his R ankle was biopsied. It looks more inflammed now. Pain was under control with tramadol before now, needing more. He can not recall ever getting an autoimmune work up. He does not go camping and does not believe he was bitten by a tick. Exam Vital Signs Vital Sign - Last Date Time Temp Pulse Resp B/P Pulse Ox O2 Delivery O2 Flow Rate FiO2 12/27/16 05:47 37.6 85 116/76 96 Room Air 12/27/16 01:07 20 Intake and Output 12/26/16 12/26/16 12/27/16 Cumulative From/Thru 15:00 23:00 07:00 12/26/16 17:05 - 12/27/16 05:31 Intake Total 1163 ml 1163 ml Balance 1163 ml 1163 ml Intake IV Total 1163 ml 1163 ml # Voids 1 1 Exam Gen.: No acute distress laying in bed HEENT normocephalic, atraumatic Skin: Swelling around both ankles, R knee and proximally over the right medial thigh and also on the posterior left tibia Heart: Regular rate and rhythm no S3-S4 murmurs Lungs clear to auscultation no crackles or wheezes Musculoskeletal: Weakness that is symmetric noted in both feet with range of motion. neuro: reflexes, sensation in lower extremities intact. No focal deficits. Psych: Negative for anxiety Lab and Diagnostics Result Diagram: 12/26/16 1800 12/26/16 1800 X-Rays, CTs and MRIs X-RAY CHEST ONE VIEW, PORTABLE 12/26 IMPRESSION: 1. No focal consolidation to suggest pneumonia. 2. Small nodular opacity in the right lung base may represent confluent vascular and bony structures. Consider short term followup repeat study in 4-6 weeks to demonstrate resolution. Dictated by: Charli Quan M.D. on 12/26/2016 at 18:20 Approved by: Charli Quan M.D. on 12/26/2016 at 18:21 Assessment & Plan Enoc Maldonado is a 56-year-old male with Hypertension, GERD and Hyperlipidemia who presents with chief complaint of bilateral ankle swelling 1. Acute Bilateral ankle pain and swelling. Present on admission Patient was on a course of Cephalexin but without any improvement. Possible cellulitis versus inflammatory process, although it is less likely to have cellulitis of both legs. Differential diagnosis includes Rheumatoid arthritis. No traumas and no prior history of Gout - follow biopsy result of skin medial to right ankle (send from the clinic) - Dr Sánchez aware and is following the patient. He discontinued the antibiotics. He feels that if aspirin is going to help in the next few days most definitely RA. - Dr. Dax Salcedo is consult that and she feels that MRI of both feet would show any signs of inflammation. These tests are ordered - So far tests ordered include DAVIDE with reflex, Lyme titers, parvovirus, anti- CCP, rheumatoid factor, hepatitis panel by various groups: We plan to follow these results - Pain control with oxycodone, tramadol. 2. Hypertension, Chronic Currently stable. - continue Lisinopril 5 mg daily 3. Dyslipidemia, Chronic Presumed stable - continue Atorvastatin 10 mg daily - Acetaminophen as needed for mild pain/fever/headache - Bowel regimen as needed - Antiemetic as needed Disposition: Expect that the test results will take some time, we will also need time to see improvement in the leg swelling and erythema and symptoms does be expect that he will be here more than 2 days Pain Evaluation: Adequate Pain Control VTE Prophylaxis: Sub-Q Heparin (Unfractionated) Resuscitation Status: CPR: Attempt Resuscitation Maria Medeiros DO Dec 27, 2016 06:10
[2016-12-27 07:24] LABS: BASOPHILS % (AUTO) 0.2 % (0-3); EOSINOPHILS % (AUTO) 0.7 % (0-5); MONOCYTES % (AUTO) 10.8 % (4-12); Mean Corpuscular Hemoglobin 30.3 pg (27.0-35.0); Mean Corpuscular Volume 93.1 fL (81-100); NEUTROPHILS % (AUTO) 75.1 % (40-74); Platelet Count 196 bil/L (150-400)
[2016-12-27] MEDS ORDERED: Vancomycin Dose per Pharmacist XX SCH (08:30)
[2016-12-27] MEDS ORDERED: Vancomycin Inj 1,250 MG in 0.9% Sodium Chloride 250 ML IV SCH (08:30)
[2016-12-27] MEDS ORDERED: Vancomycin Inj 1,500 MG in 0.9% Sodium Chloride 500 ML IV SCH (08:30)
[2016-12-27] MEDS: 0.9% Sodium Chloride 1,000 ML IV SCH ×3 (09:42→23:11)
[2016-12-27 10:18] VITALS: BP 134/85; PULSE 96; RESP 19; O2SAT 98
--- NOTE | 2016-12-27 12:06 | NUR ---
New orders New orders for Nasopharyngeal MRSA screen and EKG orders. RT here at bed side. Nasopharyngeal Swab sample sent to lab.
--- NOTE | 2016-12-27 12:48 | NUR ---
EKG result Called and notified Dr Sánchez r/t EKG results. no new orders.
--- NOTE | 2016-12-27 12:50 | CONS ---
[address] [address] CONSULTATION REPORT PATIENT: RAFA CHAN : 1960 MR#: [id number] ADMIT: 12/26/2016 JOB ID: [id number] DATE OF SERVICE: 12/27/2016 INFECTIOUS DISEASE CONSULTATION: I thank Dr. Dax Salcedo for this timely consult. REASON FOR CONSULTATION: Fever and symmetrical arthritis. HISTORY OF THE PRESENT ILLNESS: The patient is a 56-year-old retired [place] gentleman with very little past medical history who has been evaluated multiple times over the last three weeks for progressive bilateral swelling of the ankles. He was evaluated in the emergency department here at [facility] and found to have the bilateral erythema and tenderness around the ankles and at that point ASO titer was done which was positive and it was thought that he probably had bilateral lower extremity streptococcal cellulitis. He was sent out on appropriate oral antibiotics including amoxicillin but returned with more redness and swelling of the ankles which was becoming somewhat disabling. At that point a skin biopsy was done around the right ankle late last week and he was switched from amoxicillin to Keflex. He was also given a short course of steroids which seemed to lead to some improvement. In association with this bilateral ankle swelling and tenderness, the patient has developed fevers, chills, and sweats. He has been ill now for almost a total of three weeks. He denies, however, any significant headache, cough, shortness of breath, nausea, vomiting, or diarrhea. He denies having any sore throat, but of interest a few weeks ago one of his grandchildren with whom he has close contact had a proven streptococcal pharyngitis. The patient was admitted to this facility last night after I spoke on the telephone with Dr. Verduzco . She was very worried about his bilateral arthritis involving the ankles and the fact that he seemed to be getting some pain in his knees as well, which the patient confirms. Given the lack of any clear diagnosis, she felt the patient should be admitted and thoroughly evaluated, and I concurred with that plan. The patient denies any ill contacts except his grandchild with strep and he has not traveled at all outside [place] since he retired from the [employer] many years ago. Previously he had traveled to the [place] and [place]. PAST MEDICAL HISTORY: 1. GERD. 2. Hyperlipidemia. 3. Hypertension. 4. The patient was diagnosed with latent TB in the [place] and was treated with one year of INH which he completed; because he was in the [place], it was supervised. SOCIAL HISTORY: The patient is a nonsmoker, nondrinker. Retired from the [employer] and now works for the [employer]. He is and lives with his who is healthy except she has fibromyalgia. FAMILY HISTORY: Positive for early coronary disease in his father. No family history of tuberculosis. REVIEW OF SYSTEMS: At this point the patient has no headache and no visual complaints. He has no sore throat. No trouble swallowing. No stiff neck. No cough, shortness of breath, or chest pain. No nausea, vomiting, diarrhea, or dysuria. He has not complained of any swollen lymph nodes and he has no skin rash. He does note that he has very severe pain in both ankles which has now been present for more than two weeks and he is starting to develop some pain and tenderness in both knees, especially on the right. This is an additive arthritis.Remainde of the ROS is negative. PHYSICAL EXAMINATION: Reveals an afebrile gentleman; his temperature max here in the hospital has been 37.6. His pulse is 96, his respiratory rate is 19, his blood pressure is 134/85. He is saturating 98% on room air. He is awake, alert, in no acute distress. His head without trauma. His eyes without conjunctivitis, although he does seem to had a bit of chemosis. His oral cavity without thrush, pharyngitis. His neck is supple, without adenopathy. His lungs are clear. Cardiac tones are regular rate and rhythm, without any murmur. No palpable heaves or other abnormalities detected. His abdomen is soft and nontender, without organomegaly. He does not have a Barriga nor does he have suprapubic tenderness. He has no cervical or inguinal adenopathy. His neck is supple. His upper extremities are normal, including shoulders, elbows, and wrists. He does not have any tenosynovitis in his hands. The examination of the ankles is dramatically abnormal. His ankles are both swollen, red, and quite tender, with obvious arthritis involving both. There is no problem with the foot distal to the ankle, however. There is a bit of streaking perhaps on the right above the ankle but it is minimal. The right knee is slightly warm, with some very minimal erythema around it. The right knee has some pain with full motion, though he is able to take it through a full arc. The left knee, though starting to become a bit stiff by the patient's report, appears normal at this point. Neurologically, the patient is completely intact. Normal motor strength and sensation. No rash or adenopathy is appreciated. He does not have subcutaneous nodules under his forearms. LABORATORIES: Include white count of 8800, platelet count 196,000. His sedimentation rate is 1, which is quite striking and surprising given his degree of arthritis. Note that in the ER just a few days ago, however, his sedimentation rate was 46. His CRP is currently 4.1. When this started back in the ER two weeks ago, his CRP was 8.5. Creatinine 1.28. LFTs are normal. Lipase is 50. Serum IgG was done, and I am not sure why; it was normal. Rheumatoid factor at 9.6 is within the range of normal. Of great interest and importance, back on December 10 his ASO titer was 342 and on December 21 a repeat ASO titer was 393. Lyme serology negative. Micro studies include numerous negative blood cultures. IMAGING: Includes a chest radiograph which shows no infiltrates. Films of the ankle show no acute abnormality. IMPRESSION: This is an absolutely fascinating case of a 56-year-old gentleman with symmetrical arthritis involving the ankles which now seems to be moving to the knees. There are numerous factors here which would support a diagnosis of rheumatic fever, but I am concerned about making this diagnosis definitively because it is incredibly rare in [place] and the patient is a little old for this diagnosis. He fulfills Sprague criteria at this point because we have polyarthritis which is a major criteria in association with minor criteria including fevers, high CRP, and high ESR. The patient has a granddaughter who had a recent echo proven strep infection and he has an extremely high ASO titer which also fulfills Sprague criteria. It is important to note that Sprague criteria are written to be sensitive, but not necessarily specific, and we must be very careful to exclude other sources of this bilateral arthritis, but at this point I think that is our leading diagnosis. Other possibilities here would include a viral symmetrical arthritis and the possibilities here would include parvovirus, acute hepatitis B, hepatitis C, or perhaps a reaction to some more mundane virus. There is no evidence of travel, so the exotic viral arthritides are excluded. I see no evidence at all for symmetrical bacterial arthritis here. Other possibilities here could include sarcoid, or of course lupus or rheumatoid arthritis, but these seem fairly unlikely in this acute setting. RECOMMENDATIONS: 1. I would discontinue the Toradol at this point and replace it with high-dose [id number] aspirin. If the patient improves dramatically on aspirin, the diagnosis of rheumatic fever is almost confirmed. 2. Transthoracic echo should be done to look at his valves. 3. We have ordered a variety of diagnostic serologies including serologies for hepatitis B, hepatitis C, and parvovirus. 4. A MRSA screen should be done for completeness. 5. There is no point to following the ASO titer as it is going to stay high for weeks or months. 6. All current antibiotics can be discontinued. If the patient does, in fact, have rheumatic fever a course of antibiotics to eradicate any remaining Streptococcus pyogenes should be provided, but he has already received a long course of amoxicillin followed by Keflex, and now Vancomycin and Unasyn, and we can stop these antibiotics today. 7. Will continue to closely follow this patient with you. Thank you very much for this absolutely fascinating consult. LISA
--- NOTE | 2016-12-27 14:04 | NUR ---
Echocardiogram Echocardiogram done.
--- NOTE | 2016-12-27 15:45 | NUR ---
Social Work- Brief Note Data: Pt is a 56 y/o male admitted on 12/26/16 for Ankle Bilateral Swelling per H&P. Insurance is [employer] and PCP is Bobo Key MD. EMR reviewed. Readmit risk score is unavailable. SW met with pt, Antoinette [phone] and daughter at bedside to discuss discharge planning. SW role explained. Pt was oriented x3. Pt resides at home with family and is independent with ADLs. Pt has not completed DPOA/Advance Directive and declined further information at this time. to transport home in POV at discharge. Per EMR Pt is up and independent in room. No needs anticipated at this time. SW will continue to follow. Assessment: Pt who is independent at baseline. Plan: Pt will likely discharge home with no needs via in POV. SW will continue to follow. THOMAS Denis
[2016-12-27 15:51] VITALS: BP 136/84; PULSE 92; RESP 18; O2SAT 98
--- NOTE | 2016-12-27 16:34 | DRSVH ---
[facility] [address] [place] [address] Echocardiogram Report Name: RAFA CHAN GStudy Date : 12/27/2016 Height: 72 in Hospital Exam Location: [facility] Weight: 229 lb Gender: Male BSA: 2.3 m2 : 1960 Age: 56 yrs BP: 134/85 mmHg Reason For Study: Rheumatic Heart DZ Ordering Physician: [facility] Performed By: Donna Grayson Referring Physician: Jean Carlos Key Interpretation Summary The ejection fraction is estimated to be 60-65%. The ascending aorta is mildly enlarged. There is no significant valvular heart disease. Procedure: A two-dimensional transthoracic echocardiogram with color flow and Doppler was performed. The study quality was technically adequate. There is no prior echocardiogram noted for this patient. The patient was in normal sinus rhythm during the exam. Left Ventricle: The left ventricle is normal in size, wall thickness, and systolic function without any focal wall motion abnormalities. The ejection fraction is estimated to be 60-65%. Right Ventricle: The right ventricle is normal in size and function. Atria: Both atria are normal in size. There is no Doppler evidence for an interatrial shunt. Mitral Valve: The mitral valve is normal in structure and function. There is no mitral regurgitation noted. Aortic Valve: The aortic valve is normal in structure and function. No aortic regurgitation is present. Tricuspid Valve: The tricuspid valve is normal in structure and function. Pulmonary artery pressures cannot be estimated because of the lack of a measurable TR jet velocity. Pulmonic Valve: The pulmonic valve is normal in structure and function. There is a trace or physiologic amount of pulmonic regurgitation. Great Vessels: The aortic root is mildly dilated. The ascending aorta is mildly enlarged. The aortic arch is normal in size. The pulmonary artery is normal size. The IVC is of normal diameter and collapses greater than 50% with a sniff. This suggests a low right atrial pressure of 3 mm Hg. Pericardium/ Pleura There is no pericardial effusion. There is no pleural effusion. MMode/2D Measurements & Calculations LVIDd: 5.4 cm RA long axis LVOT diam: 2.1 cm LVIDs: 3.4 cm LA A2 area: 20.2 cm AoV Opening FS: 36.0 % LA A4 area: 15.7 cm RA area EPSS: 0.78 cm LA length (vol) Ao root diam IVSd: 0.92 cm : 15.5 cm LVPWd: 0.90 cm LA vol: 62.6 ml RA vol asc Aorta Diam LA vol index : 43.4 ml RA Ao Arch Diam (Prox : 19.3 mm2 Trans): 3.3 cm IVC diam: 2.1 cm LV bhardwaj. diameter/BSA LV sys. diameter/BSA RVD1 (basal) RVD2 (mid): 3.3 cm (cm/m^2): 2.4 (cm/m^2): 1.5 TAPSE: 2.1 cm Doppler Measurements & Calculations Ao V2 max MV E max aneesh MV E/A: 1.3 PA V2 max : 126.0 cm/sec : 99.5 cm/sec Pulm A Revs Dur : 76.8 cm/sec Ao max PG MV A max aneesh PA mean PG : 6.3 mmHg : 76.5 cm/sec MV A dur: 0.09 sec Ao mean PG MV P1/2t: 44.6 msec PA Accel Time : 0.15 sec LVOT Max Aneesh : 106.0 cm/sec CURTIS(I,D): 2.6 cm sev ratio MV dec time MV P1/2t max aneesh Ao V2 mean LV V1 max PG : 0.15 sec : 90.2 cm/sec MVA(P1/2t): 4.9 cm2 Ao V2 VTI: 24.0 cm LV V1 VTI CURTIS(V,D): 3.1 cm2 : 17.5 cm PA V2 mean CURTIS indexed to BSA Pulm Rory Revs Dur - MV A : 50.7 cm/sec (cm^2/m^2): 1.2 Dur: -0.01 msec PA pr(Accel) : 4.1 mmHg Electronically signed by: Braden Cole on Reading Physician:12/27/2016 04:34 PM
[2016-12-27 20:20] VITALS: BP 139/85; PULSE 87; RESP 20; O2SAT 99
--- NOTE | 2016-12-27 21:11 | DRSVH ---
PROCEDURE: MRI ANKLE RIGHT WITH AND WITHOUT CONTRAST ([id number]) INDICATIONS: cellulitis, swelling TECHNIQUE: Noncontrast sagittal T1 spin echo and T2 fast spin echo with fat saturation, axial proton density fas t spin echo and T2 fast spin echo with fat saturation, axial T1 spin echo with fat saturation, burnett l T1 spin echo and T2 fast spin echo with fat saturation through the ankle/hindfoot. Post-contrast a xial, coronal, and sagittal T1 spin echo with fat saturation through the ankle/hindfoot. COMPARISON: [facility], CR, XR ANKLE MIN 3VW WT BEARING RT, 12/26/2016, 14:37. FINDINGS: Image quality: Excellent. Bones and joints: No suspicious osseous enhancement. There is prominent diffuse subcutaneous reactiv e enhancement. No abscess seen. No bone marrow contusions or fractures. No hindfoot coalitions. No osteochondral injuries of the talar dome. Tibiotalar and subtalar joint effusions are present. Medial structures: The posterior tibialis, flexor digitorum longus, and flexor hallucis longus tendo ns are intact. There is mild fluid adjacent to the posterior tibia talus and flexor digitorum longus tendons. The posterior tibial neurovascular bundle appears normal within the tarsal tunnel, without extrinsic mass effect. The deep layer (anterior and posterior tibiotalar ligaments) and superficial layer (tib ionavicular, tibiospring, and tibiocalcaneal ligaments) of the deltoid ligament appear normal. The s pring ligament components (superomedial calcaneonavicular, medioplantar oblique calcaneonavicular, an d inferoplantar longitudinal ligaments) are intact. Lateral structures: The anterior talofibular, calcaneofibular, and posterior talofibular ligaments a ppear intact. More superiorly, the anterior and posterior tibiofibular ligaments appear normal, as i s the intermalleolar ligament. The tibiofibular syndesmosis is normal in width at 2 mm or less. The peroneus longus and brevis tendons demonstrate normal location and morphology. There is surrounding fluid about the peroneus longus suggesting low-grade tenosynovitis. Adjacent bony peroneal tubercle and retrotrochlear prominence are normal in size. The sinus tarsi demonstrates normal fatty signal, without edema, fibrosis, or cyst formation. Visualized sinus tarsi components (cervical ligament, interosseous talocalcaneal ligament, roots of the inferior extensor r etinaculum) appear normal. Anterior structures: The tibialis anterior, extensor hallucis longus, and extensor digitorum longus tendons appear intact. Posterior and plantar structures: Achilles tendon is intact. Medial and lateral bands of the planta r fascia are of normal thickness. IMPRESSION: Severe cellulitis involving the lower leg, hindfoot and midfoot. No abscess identified. No marrow sig nal changes to suggest osteomyelitis. Nonspecific mild tibiotalar and subtalar joint effusions. Low-grade peroneus longus, posterior tibialis, flexor digitorum longus tenosynovitis Dictated by: Norberto Goodrich M.D. on 12/27/2016 at 21:03 Approved by: Norberto Goodrich M.D. on 12/27/2016 at 21:10
--- NOTE | 2016-12-27 21:13 | DRSVH ---
PROCEDURE: MRI ANKLE LEFT WITH AND WITHOUT CONTRAST ([id number]) INDICATIONS: cellulitis, swelling TECHNIQUE: Noncontrast sagittal T1 spin echo and T2 fast spin echo with fat saturation, axial proton density fas t spin echo and T2 fast spin echo with fat saturation, axial T1 spin echo with fat saturation, burnett l T1 spin echo and T2 fast spin echo with fat saturation through the ankle/hindfoot. Post-contrast a xial, coronal, and sagittal T1 spin echo with fat saturation through the ankle/hindfoot. COMPARISON: None. FINDINGS: Image quality: Excellent. Bones and joints: No suspicious osseous enhancement. There is diffuse presumed reactive enhancement involving the subcutaneous soft tissues of the lower leg and hindfoot as well as midfoot which is mos t prominent dorsally. a No bone marrow contusions or fractures. No hindfoot coalitions. No osteoch ondral injuries of the talar dome. Mild tibiotalar and subtalar joint effusions. Medial structures: The posterior tibialis, flexor digitorum longus, and flexor hallucis longus tendo ns are intact. The posterior tibial neurovascular bundle appears normal within the tarsal tunnel, wi thout extrinsic mass effect. The deep layer (anterior and posterior tibiotalar ligaments) and superf icial layer (tibionavicular, tibiospring, and tibiocalcaneal ligaments) of the deltoid ligament appea r normal. The spring ligament components (superomedial calcaneonavicular, medioplantar oblique calca neonavicular, and inferoplantar longitudinal ligaments) are intact. Lateral structures: The anterior talofibular, calcaneofibular, and posterior talofibular ligaments a ppear intact. More superiorly, the anterior and posterior tibiofibular ligaments appear normal, as i s the intermalleolar ligament. The tibiofibular syndesmosis is normal in width at 2 mm or less. The peroneus longus and brevis tendons demonstrate normal location and morphology. Adjacent bony perone al tubercle and retrotrochlear prominence are normal in size. The sinus tarsi demonstrates normal fa tty signal, without edema, fibrosis, or cyst formation. Visualized sinus tarsi components (cervical ligament, interosseous talocalcaneal ligament, roots of the inferior extensor retinaculum) appear nor mal. Anterior structures: The tibialis anterior, extensor hallucis longus, and extensor digitorum longus tendons appear intact. Posterior and plantar structures: Achilles tendon is intact. Medial and lateral bands of the planta r fascia are of normal thickness. No abductor digiti quinti muscle atrophy to suggest Florez neuropa thy. IMPRESSION: Diffuse cellulitis, without evidence of osteomyelitis or abscess. Mild peroneus brevis tenosynovitis. Dictated by: Norberto Goodrich M.D. on 12/27/2016 at 21:10 Approved by: Norberto Goodrich M.D. on 12/27/2016 at 21:12
[2016-12-28 05:01] VITALS: BP 105/68; PULSE 78; RESP 18; O2SAT 97
--- NOTE | 2016-12-28 05:16 | PCM.PNMED ---
Subjective Date of Service Dec 28, 2016 Subjective Patient is seen examined. He is seen ambulating with his daughter in the hallways earlier in the day. ID has seen the patient and as his ASO titers are positive and he is appearing to be improving with aspirin and increase the dose to 4 g per day. He is currently not on any antibiotics MRI of his ankles did show tenosynovitis and cellulitis. ID feels that he is already treated adequately for strep infection. Patient states that his swelling has come down. His knees feel better. He did not have overnight fevers, chills. Tolerating general diet. Exam Vital Signs Vital Sign - Last Date Time Temp Pulse Resp B/P Pulse Ox O2 Delivery O2 Flow Rate FiO2 12/28/16 05:01 36.7 78 18 105/68 97 Room Air Intake and Output 12/27/16 12/27/16 12/28/16 Cumulative From/Thru 15:00 23:00 07:00 12/26/16 17:05 - 12/28/16 01:10 Intake Total 2456 ml 3979 ml Output Total 825 ml 950 ml Balance 1631 ml 3029 ml Intake Oral 1080 ml 1440 ml IV Total 1376 ml 2539 ml Output Urine Total 825 ml 950 ml # Voids 1 # Bowel Movements 0 Exam Gen.: No acute distress lying in bed HEENT normocephalic atraumatic Heart: Regular rate and rhythm no S3/S4 murmurs Lungs: Clear to auscultation, no wheezing or crackles Abdomen: Nontender nondistended normal bowel sounds Extremities include swelling in both ankles improvement of mobility Musculoskeletal: Strength is very slightly reduced in the right lower extremity Vascular: Include swelling in legs Skin: His ankles as well as the 2 patches on either leg appeared to be less prominent today than they were yesterday IVs and Medications IV Fluids None Medications Reviewed: Medications were reviewed in detail Lab and Diagnostics CCP test for rheumatoid arthritis is pending DAVIDE screen negative. Lyme serologies are pending. Hep B surface antigen negative. Hep C negative. Parvovirus pending. MRSA screen negative. Blood cultures negative. CBC Test 12/27/16 06:58 12/28/16 05:53 Erythrocyte Sedimentation Rate 1mm/hr (0-30) White Blood Count 7.6th/mm3 (3.8-10.1) Red Blood Count 3.83mil/mm3 (4.40-5.80) Hemoglobin 11.7g/dL (13.8-17.2) Hematocrit 35.6% (41.0-50.0) Mean Corpuscular Volume 93.0fL (81-100) Mean Corpuscular Hemoglobin 30.5pg (27.0-35.0) Mean Corpuscular Hemoglobin Concent 32.9% (32.0-37.0) Red Cell Distribution Width 13.0% (12.3-15.4) Platelet Count 197bil/L (150-400) Neutrophils (%) (Auto) 64.6% (40-74) Lymphocytes (%) (Auto) 21.6% (14-46) Monocytes (%) (Auto) 10.9% (4-12) Eosinophils (%) (Auto) 2.1% (0-5) Basophils (%) (Auto) 0.4% (0-3) CMP Test 12/26/16 18:00 12/28/16 05:53 Lactic Acid Level 1.0mmol/L Sodium Level 135mEq/L Potassium Level 4.7mEq/L Chloride Level 102mEq/L Carbon Dioxide Level 21mmol/L Blood Urea Nitrogen 12mg/dL Creatinine 1.20mg/dL Estimat Glomerular Filtration Rate 67mL/min Glucose Level 101mg/dL Calcium Level 8.2mg/dL Total Bilirubin 0.6mg/dL Aspartate Amino Transf (AST/SGOT) 14U/L Alanine Aminotransferase (ALT/SGPT) 13U/L Alkaline Phosphatase 63U/L Total Protein 5.4g/dL Albumin 2.9g/dL Result Diagram: 12/27/16 0658 12/27/16 0658 X-Rays, CTs and MRIs X-RAY CHEST ONE VIEW, PORTABLE 12/26 IMPRESSION: 1. No focal consolidation to suggest pneumonia. 2. Small nodular opacity in the right lung base may represent confluent vascular and bony structures. Consider short term followup repeat study in 4-6 weeks to demonstrate resolution. Dictated by: Charli Quan M.D. on 12/26/2016 at 18:20 Approved by: Charli Quan M.D. on 12/26/2016 at 18:21 Assessment & Plan Enoc Maldonado is a 56-year-old male with Hypertension, GERD and Hyperlipidemia who presents with chief complaint of bilateral ankle swelling 1. Acute Bilateral ankle pain and swelling. Present on admission Patient was on a course of Cephalexin but without any improvement. Possible cellulitis versus inflammatory process, although it is less likely to have cellulitis of both legs. Differential diagnosis includes Rheumatoid arthritis. No traumas and no prior history of Gout - follow biopsy result of skin medial to right ankle (send from the clinic) - Dr Sánchez aware and is following the patient. He discontinued the antibiotics. He feels that if aspirin is going to help in the next few days most definitely RA. - Dr. Dax Salcedo is consult that and she feels that MRI of both feet would show any signs of inflammation. These tests are ordered - So far tests ordered include DAVIDE with reflex, Lyme titers, parvovirus, anti- CCP, rheumatoid factor, hepatitis panel by various groups: We plan to follow these results: Hep C, hep B tests are negative. DAVIDE scan is negative. Compared factor is negative. - Pain control with oxycodone, tramadol. 2. Hypertension, Chronic Currently stable. - continue Lisinopril 5 mg daily 3. Dyslipidemia, Chronic Presumed stable - continue Atorvastatin 10 mg daily - Acetaminophen as needed for mild pain/fever/headache - Bowel regimen as needed - Antiemetic as needed Disposition: Expect that the test results will take some time, we will also need time to see improvement in the leg swelling and erythema and symptoms does be expect that he will be here more than 2 days VTE Prophylaxis: Sub-Q Heparin (Unfractionated) VTE Mechanical Devices: Intermittant Pneumatic CD Resuscitation Status: CPR: Attempt Resuscitation Maria Medeiros DO Dec 28, 2016 05:16
[2016-12-28 06:11] LABS: BASOPHILS % (AUTO) 0.4 % (0-3); EOSINOPHILS % (AUTO) 2.1 % (0-5); MONOCYTES % (AUTO) 10.9 % (4-12); Mean Corpuscular Hemoglobin 30.5 pg (27.0-35.0); NEUTROPHILS % (AUTO) 64.6 % (40-74); Platelet Count 197 bil/L (150-400)
--- NOTE | 2016-12-28 07:33 | NUR ---
MRI MRI results revealed cellulitis with no osteomylitis to BL ankles. Pt pain controlled with oxycodone and Pt able to sleep all night. Noted Pt to have cough with wheeze on exhale,spontaneous, with no pattern. States he has had this but did not tell or Dr Sánchez on assessment. Passed on to AM shift to advise Dr Sánchez on his rounds, Pt afebrile
[2016-12-28] MEDS: Pantoprazole 20 mg ER24 Tablet PO SCH (08:19)
[2016-12-28] MEDS: Heparin 5,000 Unit/mL Inj SUBQ SCH ×2 (08:21→16:30)
[2016-12-28] MEDS: 0.9% Sodium Chloride 1,000 ML IV SCH (08:58)
[2016-12-28 10:05] VITALS: BP 117/81; PULSE 87; RESP 18; O2SAT 96
--- NOTE | 2016-12-28 12:01 | PCM.PNORTH ---
Subjective Date of Service: Dec 28, 2016 Visit Information: Reason for Visit Ankle Bilateral Swelling Surgery/Surgery Date Post-Op Day # Date of Admission: Dec 26, 2016 at 19:52 Hospital Day # Subjective Patient is daily one from admission in hospital for bilateral ankle swelling and erythema. Patient states he is comfortable and just waiting for the cultures and further plan depending on diagnosis which is found. States he understands that we will have more information after the MRI and other blood tests. Postop General: No Complaints, No Shortness of Breath, No Chest Pain Objective Exam Objective Patient is alert and oriented 3. Answering questions appropriately. Patient is sitting up in bed and seems very comfortable today. Ankles have residual 2+ edema, suture in the medial right ankle. No discharge appreciated today. 1+ erythema of bilateral ankle region. Sensation and pulses are intact. MRI results and blood tests are still pending. Vital Signs and I/O Vital Sign - Last Date Time Temp Pulse Resp B/P Pulse Ox O2 Delivery O2 Flow Rate FiO2 12/28/16 10:05 36.6 87 18 117/81 96 Room Air Intake and Output 12/27/16 12/27/16 12/28/16 Cumulative From/Thru 15:00 23:00 07:00 12/26/16 17:05 - 12/28/16 06:05 Intake Total 2456 ml 440 ml 4419 ml Output Total 825 ml 975 ml 1925 ml Balance 1631 ml -535 ml 2494 ml Intake Oral 1080 ml 440 ml 1880 ml IV Total 1376 ml 2539 ml Output Urine Total 825 ml 975 ml 1925 ml # Voids 1 # Bowel Movements 0 0 Lab & Micro Results Laboratory Tests Test 12/28/16 05:53 White Blood Count 7.6th/mm3 (3.8-10.1) Red Blood Count 3.83mil/mm3 (4.40-5.80) Hemoglobin 11.7g/dL (13.8-17.2) Hematocrit 35.6% (41.0-50.0) Mean Corpuscular Volume 93.0fL (81-100) Mean Corpuscular Hemoglobin 30.5pg (27.0-35.0) Mean Corpuscular Hemoglobin Concent 32.9% (32.0-37.0) Red Cell Distribution Width 13.0% (12.3-15.4) Platelet Count 197bil/L (150-400) Neutrophils (%) (Auto) 64.6% (40-74) Lymphocytes (%) (Auto) 21.6% (14-46) Monocytes (%) (Auto) 10.9% (4-12) Eosinophils (%) (Auto) 2.1% (0-5) Basophils (%) (Auto) 0.4% (0-3) Sodium Level 135mEq/L (134-144) Potassium Level 4.7mEq/L (3.5-5.2) Chloride Level 102mEq/L (97-108) Carbon Dioxide Level 21mmol/L (18-29) Blood Urea Nitrogen 12mg/dL (6-24) Creatinine 1.20mg/dL (0.76-1.27) Estimat Glomerular Filtration Rate 67mL/min (>59) Glucose Level 101mg/dL (60-99) Calcium Level 8.2mg/dL (8.5-10.1) Total Bilirubin 0.6mg/dL (0.0-1.2) Aspartate Amino Transf (AST/SGOT) 14U/L (0-50) Alanine Aminotransferase (ALT/SGPT) 13U/L (0-44) Alkaline Phosphatase 63U/L (25-150) Total Protein 5.4g/dL (6.4-8.4) Albumin 2.9g/dL (3.4-5.0) Microbiology 12/26/16 Blood Culture - Preliminary, Resulted NO GROWTH AFTER 24 HOURS 12/27/16 MRSA (PCR) - Final, Complete Result Diagram: 12/28/16 0553 12/28/16 0553 Assessment & Plan Impression Day 1 from admission for bilateral ankle swelling and erythema. Possible cellulitis, possible systemic reaction such as gout or similar infectious disease process. Problems: Plan Patient will remain in the hospital for now. We will determine further plan process once MRI results are received as well as blood tests and determine appropriate treatment. Patient will receive pain control as ordered, as needed. We will plan to see the patient tomorrow. VTE Prophylaxis: Sub-Q Heparin (Unfractionated) Resuscitation Status: CPR: Attempt Resuscitation Carlos Tyson PA-C Dec 28, 2016 12:01
--- NOTE | 2016-12-28 13:54 | PROG NOTE ---
[address] [address] PROGRESS NOTE PATIENT: RAFA CHAN : 1960 MR#: [id number] ADMIT: 12/26/2016 JOB ID: [id number] DATE: 12/28/2016 INFECTIOUS DISEASE FOLLOW UP NOTE: REASON FOR FOLLOWUP: Probable acute rheumatic fever. INTERVAL HISTORY: The patient reports he still has pain in both ankles though it seems to be a little bit better. He is able to get up and walk around the room some and I encouraged him to try walking further out into the [place] if possible. He has had no fever, no chills, no sweats overnight. Of great importance, the patient notes that his right knee tenderness and restricted range of motion has disappeared overnight. He now has full range of motion of both knees. Recall that he did have some problems with the right knee yesterday, and to a lesser extent, the left knee and that this is now gone. He has had no sore throat. No cough. No fevers or chills and no shortness of breath or GI symptoms overnight. He has tolerated his high-dose aspirin without difficulty. PHYSICAL EXAMINATION: Reveals an afebrile, comfortable, middle-aged gentleman. Temperature 36.6, pulse 87, respiratory rate 18, blood pressure 117/81. He is saturating well on room air. Mental status is normal. Eyes without conjunctivitis. Oral cavity without pharyngitis. Lungs clear. Cardiac tones without any murmur. Abdomen soft and nontender without organomegaly. The right knee warmth and erythema seen yesterday is essentially resolved and he has full range of motion in both knees without evidence of synovitis. His ankles are still erythematous bilaterally but less warm and less tender than they were yesterday. He has full range of motion of both ankles. LABORATORIES: Include a white count stable at 7600, his creatinine is 1.20. His LFTs are normal. Albumin 2.9. CCP test for rheumatoid arthritis is pending as is an DAVIDE screen. Lyme serologies are pending. Hep B surface antigen negative. Hep C negative. Parvovirus pending. MRSA screen negative. Blood cultures negative. IMAGING: Done since yesterday includes an MRI scan of the right ankle which shows cellulitis and joint effusions with some degree of tenosynovitis. The MRI of the opposite ankle shows cellulitis again with some tenosynovitis. IMPRESSION: This patient has a picture compatible with acute rheumatic fever though it is incredibly rare in the [place] at this juncture and it is unusual in a 56-year-old as well. He meets Sprague criteria as he has polyarthritis, did have fevers, elevated inflammatory markers and a positive ASO titer. His echo was just done and it shows no valvular lesions so he does not have carditis nor does he have erythema marginatum subcutaneous nodules or chorea or the so-called [place] dance, but he still fulfills the criteria as these other manifestations are unusual in adults. RECOMMENDATIONS: 1. Will continue with the aspirin but increase the dose to two tablets four times a day for a total of 4 g a day of aspirin. 2. Will continue to closely watch this patient with you. If his ankles are substantially improved by tomorrow, I think he could be discharged with a tentative diagnosis of acute rheumatic fever and I will see him in my office and follow him for that diagnosis.
--- NOTE | 2016-12-28 19:23 | NUR ---
Activity/ Aspirin/Heparin Pt encouraged to be up and about today by Dr. Sánchez, he walked 6 laps around unit. Pain well controlled requiring no pain medication throughout the day. Aspirin doses increased for potential Rheumatic Fever; rate increase does not match Dr. Sánchez's note and what the patient was told; verified with Dr. Sánchez that it was accurate. Pt refused Heparin dose at 1630, Dr. Medeiros aware and comfortable with this.
[2016-12-28] MEDS ORDERED: Vancomycin Serum Trough XX ONE (20:00)
[2016-12-28 20:32] VITALS: BP 135/77; PULSE 93; RESP 20; O2SAT 98
[2016-12-29] MEDS: Heparin 5,000 Unit/mL Inj SUBQ SCH ×2 (00:30→08:30)
--- NOTE | 2016-12-29 01:57 | NUR ---
ASPIRIN/PAIN PT REC'D INCREASED DOSE OF ASPIRIN- 650MG Q4HRS PER ORDERS, REMAINED AFEBRILE ALL SHIFT. REFUSED HEPARIN AT 0030. HAD 0 C/O PAIN ALL SHIFT, STATES HE IS READY TO GO HOME.
[2016-12-29 05:42] VITALS: BP 100/66; PULSE 75; RESP 20; O2SAT 96
[2016-12-29 06:44] LABS: BASOPHILS % (AUTO) 0.2 % (0-3); EOSINOPHILS % (AUTO) 1.9 % (0-5); MONOCYTES % (AUTO) 9.9 % (4-12); Mean Corpuscular Hemoglobin 30.3 pg (27.0-35.0); Mean Corpuscular Volume 91.8 fL (81-100); NEUTROPHILS % (AUTO) 70.8 % (40-74); Platelet Count 220 bil/L (150-400)
--- NOTE | 2016-12-29 08:48 | NUR ---
Social Work- Readiness for Discharge Data: EMR reviewed. Pt is on day 3 of hospitalization for Ankle Bilateral Swelling per H&P. ID continues to follow. Pt is not medically stable for discharge. Per EMR, pt is ambulating independently in room. to transport home in POV at discharge. No needs anticipated at this time. SW will continue to follow. Assessment: Pt who is independent at baseline. Plan: Pt will likely discharge home with no needs via in POV. SW will continue to follow. THOMAS Ray
[2016-12-29] MEDS: Pantoprazole 20 mg ER24 Tablet PO SCH (10:01)
--- NOTE | 2016-12-29 13:12 | PROG NOTE ---
[address] [address] PROGRESS NOTE PATIENT: RAFA CHAN : 1960 MR#: [id number] ADMIT: 12/26/2016 JOB ID: [id number] DATE: 12/29/2016 REASON FOR FOLLOWUP: Acute rheumatic fever. INTERVAL HISTORY: Overnight, the patient has continued with a higher dose of aspirin and notes considerable improvement in his ankles. The stiffness in his right knee, in particular, has completely resolved as well. He is able to ambulate without much difficulty and reports he would like to be discharged today. He is having no fevers, chills, or sweats. No shortness of breath. No chest pain and no unusual skin rash. PHYSICAL EXAMINATION: Reveals an afebrile gentleman, in no acute distress. Temp 36.6, pulse 75, respiratory rate 20, blood pressure 100/66, saturating 96% on room air. He is in no acute distress. Mental status is sharp. Oral cavity without pharyngitis. Neck supple. Lungs clear. No cardiac murmurs. Abdomen benign. His knees have normal range of motion without erythema or swelling. His ankles are still mildly erythematous and swollen but much improved over the past 48 hours since we started aspirin. He can now get up and walk without undue difficulty. LABORATORIES: Include white count 8900, completely normal diff. Creatinine 1.28. LFTs are normal. Albumin 3.1. Urinalysis without pyuria. Rheumatoid factor, CCP are pending. Other pending studies include Lyme disease serologies, which I did not order. Hep B and hep C are negative. Parvovirus, interestingly negative, IgG and IgM both. Blood cultures negative. MRSA screen negative. IMPRESSION: Though rare in adults, I think this patient does have rheumatic fever. He meets Sprague criteria by virtue of a very strongly positive ASO titer, arthritis involving the major joints of the lower extremities, which is otherwise unexplained and elevated CRP and sedimentation rate. Sprague criteria not necessarily specific, as it is certainly possible the patient just happened to have a recent streptococcal infection causing the high ASO and has another reason for his polyarticular arthritis, but I think right now, this is a leading explanation and his response to aspirin suggests that it is true. His echo was normal, fortunately, and he has no murmurs or indication of carditis. I called the pharmacy and they do not have any benzathine penicillin. I do not think it is necessary to hold up the patient's discharge, but he should be started on benzathine penicillin 1.2 million units IM q.4 weeks with an intention of continuing for about five years. RECOMMENDATIONS: 1. The patient can be discharged today and I would send him out on amoxicillin 500 t.i.d. and give him about a two-week supply. This will carry him through to his appointment with me, which is scheduled for January 10. 2. Hopefully, the patient can arrange through his primary care doctor to start getting benzathine penicillin 1.2 million units IM q.4 weeks. Though there is controversy in the literature, this should probably continue about five years. 3. He should continue on high-dose aspirin, taking 8-12 tablets a day in divided doses for the next 6-8 weeks. I would anticipate complete resolution of this arthritis over the next few weeks. 4. I will be closely following this patient in the clinic. Benzathine found so will give first dose today in hospital [facility]
--- NOTE | 2016-12-29 13:24 | PCM.DIMED ---
Discharge Instructions Date of Service Dec 29, 2016 Dates of Hospitalization Dec 26, 2016 at 19:52 Discharge Diagnosis Discharge Diagnosis Ankle Cellulitis likely due to rheumatic disease possibly due to step infection , Stage II CKD, HTN, GERD, Hyperlipidemia Medication Instructions Take amoxicillin 500 mg PO TID for ten days Take probiotics Take Aspirin as prescribed. Diet No restrictions, Heart Healthy Activity No restrictions Call your provider Fever or Chills, Shortness of breath, Bleeding, Chest pain, Vomitting, Excessive diarrhea, Weakness (unilateral), Other Patient Instructions Follow-up plan Please see Dr. Sánchez on 01/10/17 Please get follow up lab work BMP and CBC prior to meeting with him. Please see your PCP in 2 weeks Maria Medeiros DO Dec 29, 2016 13:24
[2016-12-29] MEDS ORDERED: TRAM50TA2 PO (13:26)
[2016-12-29] MEDS ORDERED: AMOX500C2 PO (13:26)
[2016-12-29] MEDS ORDERED: ASPI325T32 PO (13:31)
--- NOTE | 2016-12-29 14:11 | NUR ---
discharged home with family. Has Rx for Amoxicillin, ASA and Tramadol. Pt states feeling much better, ambulating without problems, eating/drinking OK
--- NOTE | 2016-12-29 14:18 | NUR ---
Social Work- Discharge Data: EMR reviewed. Pt is on day 3 of hospitalization for Ankle Bilateral Swelling per H&P. Pt to discharge today. Per EMR, pt is ambulating independently in room. to transport home in POV at discharge. No needs at this time. Assessment: Pt who is independent at baseline. Plan: Pt will likely discharge home with no needs via in POV. THOMAS Ray
--- NOTE | 2016-12-29 20:59 | PCM.DC.MED ---
Discharge Summary Date of Service Dec 29, 2016 Dates of Hospitalization Date of Hospital Admission Dec 26, 2016 at 19:52 Date of Discharge: Dec 29, 2016 Providers: Admitting Physician: Andry Lebron MD Primary Care Physician: Bobo Key MD Attending Physician: Andry Lebron MD Diagnosis at Time of Discharge Diagnosis at Time of Discharge Ankle Cellulitis likely due to rheumatic disease possibly due to step infection , Stage II CKD, HTN, GERD, Hyperlipidemia Consultations Orthopedic surgery, infectious disease Procedures XRay, CTs & MRIs [facility] Diagnostic [place] [address] Patient Name: ENOC MALDONADO MR#: [id number] [place] [facility] [place] Phys: Maria Griffin DO Date of Service: 12/27/16 1027 PROCEDURE: MRI ANKLE LEFT WITH AND WITHOUT CONTRAST ([id number]) INDICATIONS: cellulitis, swelling TECHNIQUE: Noncontrast sagittal T1 spin echo and T2 fast spin echo with fat saturation, axial proton density fast spin echo and T2 fast spin echo with fat saturation, axial T1 spin echo with fat saturation, coronal T1 spin echo and T2 fast spin echo with fat saturation through the ankle/hindfoot. Post-contrast axial, coronal, and sagittal T1 spin echo with fat saturation through the ankle/ hindfoot. COMPARISON: None. FINDINGS: Image quality: Excellent. Bones and joints: No suspicious osseous enhancement. There is diffuse presumed reactive enhancement involving the subcutaneous soft tissues of the lower leg and hindfoot as well as midfoot which is most prominent dorsally. a No bone marrow contusions or fractures. No hindfoot coalitions. No osteochondral injuries of the talar dome. Mild tibiotalar and subtalar joint effusions. Medial structures: The posterior tibialis, flexor digitorum longus, and flexor hallucis longus tendons are intact. The posterior tibial neurovascular bundle appears normal within the tarsal tunnel, without extrinsic mass effect. The deep layer (anterior and posterior tibiotalar ligaments) and superficial layer ( tibionavicular, tibiospring, and tibiocalcaneal ligaments) of the deltoid ligament appear normal. The spring ligament components (superomedial calcaneonavicular, medioplantar oblique calcaneonavicular, and inferoplantar longitudinal ligaments) are intact. Lateral structures: The anterior talofibular, calcaneofibular, and posterior talofibular ligaments appear intact. More superiorly, the anterior and posterior tibiofibular ligaments appear normal, as is the intermalleolar ligament. The tibiofibular syndesmosis is normal in width at 2 mm or less. The peroneus longus and brevis tendons demonstrate normal location and morphology. Adjacent bony peroneal tubercle and retrotrochlear prominence are normal in size. The sinus tarsi demonstrates normal fatty signal, without edema , fibrosis, or cyst formation. Visualized sinus tarsi components (cervical ligament, interosseous talocalcaneal ligament, roots of the inferior extensor retinaculum) appear normal. Anterior structures: The tibialis anterior, extensor hallucis longus, and extensor digitorum longus tendons appear intact. Posterior and plantar structures: Achilles tendon is intact. Medial and lateral bands of the plantar fascia are of normal thickness. No abductor digiti quinti muscle atrophy to suggest Florez neuropathy. IMPRESSION: Diffuse cellulitis, without evidence of osteomyelitis or abscess. Mild peroneus brevis tenosynovitis. Dictated by: Norberto Goodrich M.D. on 12/27/2016 at 21:10 Approved by: Norberto Goodrich M.D. on 12/27/2016 at 21:12 [facility] Diagnostic [place] [address] Patient Name: ENOC MALDONADO MR#: [id number] [place] [facility] [place]ing Phys: Maria Griffin DO Date of Service: 12/27/16 1027 PROCEDURE: MRI ANKLE RIGHT WITH AND WITHOUT CONTRAST ([id number]) INDICATIONS: cellulitis, swelling TECHNIQUE: Noncontrast sagittal T1 spin echo and T2 fast spin echo with fat saturation, axial proton density fast spin echo and T2 fast spin echo with fat saturation, axial T1 spin echo with fat saturation, coronal T1 spin echo and T2 fast spin echo with fat saturation through the ankle/hindfoot. Post-contrast axial, coronal, and sagittal T1 spin echo with fat saturation through the ankle/ hindfoot. COMPARISON: [facility], CR, XR ANKLE MIN 3VW WT BEARING RT, 2016, 14:37. FINDINGS: Image quality: Excellent. Bones and joints: No suspicious osseous enhancement. There is prominent diffuse subcutaneous reactive enhancement. No abscess seen. No bone marrow contusions or fractures. No hindfoot coalitions. No osteochondral injuries of the talar dome. Tibiotalar and subtalar joint effusions are present. Medial structures: The posterior tibialis, flexor digitorum longus, and flexor hallucis longus tendons are intact. There is mild fluid adjacent to the posterior tibia talus and flexor digitorum longus tendons. The posterior tibial neurovascular bundle appears normal within the tarsal tunnel, without extrinsic mass effect. The deep layer (anterior and posterior tibiotalar ligaments) and superficial layer (tibionavicular, tibiospring, and tibiocalcaneal ligaments) of the deltoid ligament appear normal. The spring ligament components (superomedial calcaneonavicular, medioplantar oblique calcaneonavicular, and inferoplantar longitudinal ligaments) are intact. Lateral structures: The anterior talofibular, calcaneofibular, and posterior talofibular ligaments appear intact. More superiorly, the anterior and posterior tibiofibular ligaments appear normal, as is the intermalleolar ligament. The tibiofibular syndesmosis is normal in width at 2 mm or less. The peroneus longus and brevis tendons demonstrate normal location and morphology. There is surrounding fluid about the peroneus longus suggesting low- grade tenosynovitis. Adjacent bony peroneal tubercle and retrotrochlear prominence are normal in size. The sinus tarsi demonstrates normal fatty signal, without edema, fibrosis , or cyst formation. Visualized sinus tarsi components (cervical ligament, interosseous talocalcaneal ligament, roots of the inferior extensor retinaculum ) appear normal. Anterior structures: The tibialis anterior, extensor hallucis longus, and extensor digitorum longus tendons appear intact. Posterior and plantar structures: Achilles tendon is intact. Medial and lateral bands of the plantar fascia are of normal thickness. IMPRESSION: Severe cellulitis involving the lower leg, hindfoot and midfoot. No abscess identified. No marrow signal changes to suggest osteomyelitis. Nonspecific mild tibiotalar and subtalar joint effusions. Low-grade peroneus longus, posterior tibialis, flexor digitorum longus tenosynovitis Dictated by: Norberto Goodrich M.D. on 12/27/2016 at 21:03 Approved by: Norberto Goodrich M.D. on 12/27/2016 at 21:10 [facility] Diagnostic [place] [address] Patient Name: ENOC MALDONADO MR#: [id number] [place] [facility] [place]ing Phys: KARINA PICKARD MD Date of Service: 12/26/16 1720 PROCEDURE: X-RAY CHEST ONE VIEW, PORTABLE ([id number]) INDICATIONS: low grade fever TECHNIQUE: One view of the chest was acquired. COMPARISON: [facility], CR, XR CHEST 2VW, 12/10/2016, 14:13. FINDINGS: Surgical changes and devices: None. Lungs and pleura: No pleural effusions or pneumothorax. No acute consolidation. There is a small nodular opacity in the right lower lung zone measuring approximately 6 mm. Mediastinum: Mediastinal contours appear normal. Heart size is normal. Bones and chest wall: No suspicious bony lesions. Overlying soft tissues appear unremarkable. IMPRESSION: 1. No focal consolidation to suggest pneumonia. 2. Small nodular opacity in the right lung base may represent confluent vascular and bony structures. Consider short term followup repeat study in 4-6 weeks to demonstrate resolution. Dictated by: Charli Quan M.D. on 12/26/2016 at 18:20 Approved by: Charli Quan M.D. on 12/26/2016 at 18:21 [facility] Diagnostic Imaging Department [place], [place] [id number] Patient Name: ENOC MALDONADO MR#: [id number] [facility] Ordering Phys: Dax Salcedo MD Date of Service: 12/26/16 1433 PROCEDURE: X-RAY ANKLE MINIMUM 3 VIEWS, WEIGHT BEARING, LEFT INDICATIONS: ACUTE BILATERAL ANKLE PAIN TECHNIQUE: 3 views of the ankle were acquired. COMPARISON: None. FINDINGS: Bones: No fractures or dislocations. Ankle mortise is normally aligned. No suspicious bony lesions. Soft tissues: No tibiotalar joint effusion. Achilles tendon appears normal. IMPRESSION: No acute fracture. No osseous lesion. If symptoms and/or clinical suspicion for pathology persist, further assessment with repeat, or advanced imaging (e.g., CT, MRI, or bone scan) may be helpful for further assessment. Dictated by: Adia Suarez M.D. on 12/26/2016 at 16:58 Approved by: Adia Suarez M.D. on 12/26/2016 at 16:58 [facility] Diagnostic Imaging Department [place], [place] [id number] Patient Name: ENOC MALDONADO MR#: [id number] Location: [facility] Ordering Phys: Dax Salcedo MD Date of Service: 12/26/16 1433 PROCEDURE: X-RAY ANKLE MINIMUM 3 VIEWS, WEIGHT BEARING, RIGHT INDICATIONS: ACUTE BILATERAL ANKLE PAIN TECHNIQUE: 3 views of the ankle were acquired. COMPARISON: [facility], CR, XR ANKLE MIN 3VW WT BEARING LT, 2016, 14:37. FINDINGS: Bones: No fractures or dislocations. Ankle mortise is normally aligned. No suspicious bony lesions. Soft tissues: No tibiotalar joint effusion. Achilles tendon appears normal. IMPRESSION: No acute fracture. No osseous lesion. If symptoms and/or clinical suspicion for pathology persist, further assessment with repeat, or advanced imaging (e.g., CT, MRI, or bone scan) may be helpful for further assessment. Dictated by: Adia Suarez M.D. on 12/26/2016 at 16:59 Approved by: Adia Suarez M.D. on 12/26/2016 at 17:00 [facility] Diagnostic Imaging Department [place], [place] [id number] Patient Name: ENOC MALDONADO MR#: [id number] [place] [facility] [place]ing Phys: Mis Plunkett Date of Service: 12/10/16 1359 PROCEDURE: X-RAY CHEST, TWO VIEWS ([id number]) INDICATIONS: 56-year-old male with bilateral ankle swelling for several weeks. TECHNIQUE: 2 views of the chest were acquired. COMPARISON: None. FINDINGS: Surgical changes and devices: None. Lungs and pleura: No pleural effusions or pneumothorax. Lungs are clear. Mediastinum: Mediastinal contours are normal. Heart size is normal. Bones and chest wall: No suspicious bony abnormalities. Soft tissues appear unremarkable. IMPRESSION: No acute cardiopulmonary disease. Dictated by: Jacob Saez M.D. on 12/10/2016 at 14:31 Approved by: Jacob Saez M.D. on 12/10/2016 at 14:31 [facility] Diagnostic [place] [address] Patient Name: ENOC MALDONADO MR#: [id number] [place] [facility] [place] Ordering Phys: Mis Plunkett Date of Service: 12/10/16 1315 PROCEDURE: US VENOUS LEG DUPLEX BILATERAL INDICATIONS: 56-year-old male with left ankle swelling. TECHNIQUE: Real-time imaging, as well as color and pulse Doppler interrogation, were performed of the deep veins of both legs from the inguinal ligament to the popliteal fossa. COMPARISON: None. FINDINGS: The deep veins are normally compressible, and free of intraluminal thrombus. Color and pulse Doppler demonstrate normal phasic intravascular flow. There is normal augmentation response to distal compression maneuver. IMPRESSION: No evidence for lower extremity deep venous thrombosis. Dictated by: Jacob Saez M.D. on 12/10/2016 at 15:03 Approved by: Jacob Saez M.D. on 12/10/2016 at 15:05 Brief History Enoc Maldonado is a 56-year-old male with Hypertension, GERD and Hyperlipidemia who presents with chief complaint of bilateral ankle swelling. Patient reported he first noticed the swelling about 3 weeks ago. He was evaluated in the Emergency room and had a course of antibiotics and steroids but initial improvement but then the swelling and redness recurred. He had a skin biopsy done by Dr Jay in the Emergency room days ago. The pain was so severe it limited his mobility, especially walking down the stairs with limited ankle joint motion. He also has some systemic symptoms of feeling warm and some chills. He has decreased appetite with some constipation Denies any recent travels, no new medications and no new socks or shoes. No family history of autoimmune disease. Case discussed with JUJU Fuentes. Dr Salcedo had seen and consulted on the patient. Vancomycin, Tramadol and Levaquin given in the ED. Hospital Course Enoc Maldonado is a 56-year-old male with Hypertension, GERD and Hyperlipidemia who presents with chief complaint of bilateral ankle swelling 1. Acute Bilateral ankle pain and swelling. Present on admission Patient was on a course of Cephalexin but without any improvement. Possible cellulitis versus inflammatory process, although it is less likely to have cellulitis of both legs. Differential diagnosis includes Rheumatoid arthritis. No traumas and no prior history of Gout - follow biopsy result of skin medial to right ankle (send from the clinic): There is no result published as yet - Dr Sánchez aware and is following the patient. - he felt that his symptoms are consistent with rheumatic disease and ordered aspirin 625 mg every 4 hours. With this his symptoms have indeed improved. On the day of discharge is ambulating comfortably in the hallways. The erythema around his ankles has markedly come down. Per Dr. Sánchez aspirin, and amoxicillin scripts were given to him. A one-time dose of Bicillin L A IM injection is given prior to discharge Dr. Dax Salcedo is consult that and she feels that MRI of both feet would show any signs of inflammation. These tests are ordered - So far tests ordered include DAVIDE with reflex, Lyme titers, parvovirus, anti- CCP, rheumatoid factor, hepatitis panel by various groups: We plan to follow these results: Hep C, hep B tests are negative. DAVIDE scan is pending. RF factor is pending. Her weight is, Lyme titers and negative - Pain control with oxycodone, tramadol were given for pain control during this hospital stay: He was given tramadol for home discharge 2. Hypertension, Chronic - Lisinopril 5 mg daily 3. Dyslipidemia, Chronic - continued Atorvastatin 10 mg daily - Acetaminophen as needed for mild pain/fever/headache - Bowel regimen as needed - Antiemetic as needed Exam Vital Signs (Last) Date Time Temp Pulse Resp B/P Pulse Ox O2 Delivery O2 Flow Rate FiO2 12/29/16 05:42 36.6 75 20 100/66 96 Room Air Exam Gen.: No acute distress lying in bed HEENT: Normocephalic, atraumatic Heart: Regular rate and rhythm no S3-S4 murmurs Lungs clear to auscultation no crackles or wheezes Abdomen nondistended Extremities: Reduced swelling and lower extremities. Strength is equal and symmetric Vascular 2+ dorsalis pedis pulse. Skin markedly reduced erythema bilaterally and ankles Test 12/26/16 18:00 12/26/16 18:30 12/27/16 06:58 12/27/16 10:33 Lactic Acid Level 1.0mmol/L (0.4-2.0) Urine Color Yellow (YELLOW) Urine Appearance Clear (CLEAR,HAZY) Urine pH 6.0 (5.0-8.0) Urine Specific [place] >1.030 (1.003-1.035) Urine Protein Negativemg/dL (NEG,TRACE) Urine Glucose (UA) Negativemg/dL (NEGATIVE) Urine Ketones Negativemg/dL (NEGATIVE) Urine Occult Blood Negative (NEGATIVE) Urine Nitrite Negative (NEGATIVE) Urine Bilirubin Negative (NEGATIVE) Urine Urobilinogen Normalmg/dL (NORMAL) Urine Leukocyte Esterase Negative (NEGATIVE) Urine RBC 0-2/hpf (0-2) Urine WBC 0-5/hpf (0-5) Urine Epithelial Cells Few/hpf (NONE-MOD) Urine Crystals None seen (NONE SEEN) Urine Bacteria Few/hpf (NONE-FEW) Urine Hyaline Casts None/lpf (NONE) Urine Granular Casts None seen (NONE SEEN) Urine Waxy Casts None seen (NONE SEEN) Urine Red Blood Cell Casts None seen (NONE SEEN) Urine White Blood Cell Casts None seen (NONE SEEN) Urine Mucus Present (None Seen) Urine Trichomonas None seen (NONE SEEN) Urine Yeast None (NONE SEEN) Urinalysis Comment None Urine Culture Reflexed Not indicated Erythrocyte Sedimentation Rate 1mm/hr (0-30) Lyme Disease Screen IgG & IgM Ab <0.91ISR (0.00-0.90) Lyme Disease IgM Ab Quantitation <0.80index (0.00-0.79) Hepatitis B Surface Antigen Negative (Negative) Hepatitis C Antibody <0.1s/co ratio (0.0-0.9) Parvovirus (B19) IgG Antibody 0.2index (0.0-0.8) Parvovirus (B19) IgM Antibody 0.2index (0.0-0.8) Test 12/28/16 19:35 12/29/16 06:15 Vancomycin Level Trough 2.6mcg/mL White Blood Count 8.9th/mm3 (3.8-10.1) Red Blood Count 4.03mil/mm3 (4.40-5.80) Hemoglobin 12.2g/dL (13.8-17.2) Hematocrit 37.0% (41.0-50.0) Mean Corpuscular Volume 91.8fL (81-100) Mean Corpuscular Hemoglobin 30.3pg (27.0-35.0) Mean Corpuscular Hemoglobin Concent 33.0% (32.0-37.0) Red Cell Distribution Width 12.9% (12.3-15.4) Platelet Count 220bil/L (150-400) Neutrophils (%) (Auto) 70.8% (40-74) Lymphocytes (%) (Auto) 16.9% (14-46) Monocytes (%) (Auto) 9.9% (4-12) Eosinophils (%) (Auto) 1.9% (0-5) Basophils (%) (Auto) 0.2% (0-3) Sodium Level 137mEq/L (134-144) Potassium Level 4.6mEq/L (3.5-5.2) Chloride Level 101mEq/L (97-108) Carbon Dioxide Level 22mmol/L (18-29) Blood Urea Nitrogen 15mg/dL (6-24) Creatinine 1.28mg/dL (0.76-1.27) Estimat Glomerular Filtration Rate 62mL/min (>59) Glucose Level 106mg/dL (60-99) Calcium Level 9.3mg/dL (8.5-10.1) Total Bilirubin 0.5mg/dL (0.0-1.2) Aspartate Amino Transf (AST/SGOT) 17U/L (0-50) Alanine Aminotransferase (ALT/SGPT) 21U/L (0-44) Alkaline Phosphatase 74U/L (25-150) Total Protein 6.1g/dL (6.4-8.4) Albumin 3.1g/dL (3.4-5.0) Discharge Medications Discharge Medications Amoxicillin (Amoxicillin) 500 Mg Capsule 500 MG PO TID Prescribed by: MARIA GRIFFIN DO Aspirin (Aspirin) 325 Mg Tablet 650 MG PO Q4 Prescribed by: MARIA GRIFFIN DO Atorvastatin (Lipitor) 40 Mg Tablet 40 MG PO HS (Reported) Esomeprazole Magnesium (Nexium) 40 Mg Capsule.dr 40 MG PO HS (Reported) Lisinopril (Lisinopril) 20 Mg Tablet 20 MG PO HS (Reported) As needed Sildenafil Citrate (Viagra) 100 Mg Tablet 100 MG PO UD PRN PRN for sexual activity (Reported) Tramadol (Tramadol) 50 Mg Tablet 50 MG PO Q4H PRN PRN For Pain Prescribed by: MARIA GRIFFIN, DO Additional med instructions Take amoxicillin 500 mg PO TID for ten days Take probiotics Take Aspirin as prescribed. Followup Plan Follow-up plan Please see Dr. Sánchez on 01/10/17 Please get follow up lab work BMP and CBC prior to meeting with him. Please see your PCP in 2 weeks Discharge Diet: No restrictions, Heart Healthy Discharge Activity: No restrictions Maria Griffin DO Dec 29, 2016 20:59
[2017-01-24] MEDS ORDERED: [UNRECOGNIZED DRUG - CODE] IM (16:16)
== END 2016-12-29 13:00 | disposition home or self-care (01) | DRG 546 ==
LOC: SED 17:01 → OSC 19:52
PROVIDERS: ADMIT Hospitalist; ATTEND Hospitalist
DX: I00 Rheumatic fever without heart involvement (principal); L03.115 Cellulitis of right lower limb; L03.116 Cellulitis of left lower limb; E78.5 Hyperlipidemia, unspecified; K21.9 Gastro-esophageal reflux disease without esophagitis; Z87.891 Personal history of nicotine dependence; I12.9 Hypertensive chronic kidney disease with stage 1 through stage 4 chronic kidney disease, or unspecified chronic kidney disease; N18.2 Chronic kidney disease, stage 2 (mild)